=== PATIENT | female | born 1940 | race Caucasian/White ===

== ENCOUNTER 2022-10-28 20:12 | Inpatient (IN) | payer MEDICARE, BC ==
--- NOTE | 2022-10-28 20:15 | ERPHSYRPT ---
- History of Present Illness Time Seen by Provider: 10/28/22 20:15 Historian: patient, family Exam Limitations: no limitations Physician History: This is an overweight 82-year-old white female patient who presents with at least a month of symptoms including vomiting and diarrhea, cough, shortness of air, headache and body aches. Patient states she has not seen her primary care provider but the office has called in medication for her to help treat diarrhea. This did not help her symptoms. Patient denies chest pain at this time. Patient does use oxygen occasionally for COPD. In the last day or 2 she has had increased the use of her oxygen. Patient has a history of hyperlipidemia, hypothyroidism, hypertension, diabetes, gastroesophageal reflux disease. In a ddition she has coronary disease and has not had a CABG in the past. Timing/Duration: other (Symptoms for over a month) Activities at Onset: none Quality: other Abdominal Pain Onset Location: generalized abdomen (Mild) Pain Radiation: no radiation Severity of Pain-Max: mild Severity of Pain-Current: mild Modifying Factors: Improves With: coughing, vomiting Associated Symptoms: diarrhea, loss of appetite, nausea, shortness of breath (Mild), vomiting, weakness, No chest pain Previous symptoms: same symptoms as today, no recent treatment Allergies/Adverse Reactions: No Known Drug Allergies Allergy (Verified 10/28/22 20:25) Home Medications: Aspirin [Blanca Chewable] 81 mg PO DAILY 07/07/15 [History] Cyanocobalamin 1000 Mcg/ml [Cyanocobalamin B-12 1000 MCG/ML] 1,000 mcg IJ UD 07/07/15 [History] Levothyroxine Sodium [Synthroid] 125 mcg PO DAILY 07/07/15 [History] Losartan Potassium 50 mg [Cozaar 50 MG] 50 mg PO DAILY 07/07/15 [History] Simvastatin 40 mg [Zocor 40 mg] 40 mg PO HS 07/07/15 [History] Amlodipine Besylate 5 mg [Norvasc 5 mg] 5 mg PO DAILY 10/28/22 [History] Cholecalciferol (Vitamin D3) [Vitamin D] 1.25 mg PO WEEKLY 10/28/22 [History] Cholestyramine [Cholestyramine Resin] 25 mg PO DAILY 10/28/22 [History] Fish Oil/Dha/Epa [Fish Oil 1,200 mg Fish Oil] 1,200 mg PO DAILY 10/28/22 [History] Meclizine HCl 12.5 mg PO DAILY 10/28/22 [History] Ondansetron [Ondansetron Odt ] 1 tab PO Q8H PRN PRN 10/28/22 [History] Potassium Chloride [Klor-Con 10] 10 meq PO DAILY 10/28/22 [History] Sitagliptin Phos/Metformin HCl [Janumet Xr 100-1,000 mg Tablet] 50 - 1,000 mg PO DAILY 10/28/22 [History] Travel Risk - International Travel Have you traveled outside of the country in past 3 weeks: No - Coronavirus Screening Are you exhibiting any of the following symptoms?: Yes Symptoms: Cough: New Onset, Shortness of Breath, Vomiting/Diarrhea, Headaches/Body Aches/Fatigue Close contact with a COVID-19 positive Pt in past 14-21 Days: No - Review of Systems Constitutional: Weakness Eyes: No Symptoms Ears, Nose, & Throat: No Symptoms Respiratory: No Symptoms Cardiac: No Symptoms Abdominal/Gastrointestinal: Abdominal Pain, Nausea, Vomiting, Diarrhea, Appetite Changes Genitourinary Symptoms: No Symptoms Musculoskeletal: Arthralgias, Myalgias Skin: No Symptoms Neurological: No Symptoms Psychological: No Symptoms Endocrine: No Symptoms Hematologic/Lymphatic: No Symptoms Immunological/Allergic: No Symptoms All Other Systems: Reviewed and Negative - Past Medical History Pertinent Past Medical History: Yes Neurological History: No Pertinent History ENT History: Cataracts Cardiac History: Coronary Artery Disease, High Cholesterol, Hypertension Respiratory History: No Pertinent History Endocrine Medical History: Diabetes Type II, Hypothyroidism Musculoskeletal History: Arthritis GI Medical History: GERD, Other History: No Pertinent History Psycho-Social History: No Pertinent History Female Reproductive Disorders: No Pertinent History Other Medical History: states has had diarrhea last few weeks - Past Surgical History Past Surgical History: Yes Neuro Surgical History: No Pertinent History Cardiac: CABG Respiratory: Chest Surgery Gastrointestinal: Appendectomy, Cholecystectomy Genitourinary: No Pertinent History Musculoskeletal: No Pertinent History Female Surgical History: Lumpectomy, Tubal Ligation Other Surgical History: T&A, lumpectomy right breast was benign, sinus surgery, lumpectomy at neck/shoulder area - Social History Smoking Status: Never smoker Exposure to second hand smoke: No Drug Use: none - Nursing Vital Signs Nursing Vital Signs: Initial Vital Signs Temperature 98.5 F 10/28/22 20:24 Pulse Rate 65 10/28/22 20:24 Respiratory Rate 17 10/28/22 20:24 Blood Pressure 139/64 10/28/22 20:24 O2 Sat by Pulse Oximetry 98 10/28/22 20:24 Pain Scale Pain Intensity 0 - Physical Exam General Appearance: no apparent distress, alert, anxiety Eye Exam: PERRL/EOMI, eyes nml inspection Ears, Nose, Throat Exam: dry mucous membranes Neck Exam: normal inspection, non-tender, supple, full range of motion Respiratory Exam: normal breath sounds, lungs clear, airway intact, No chest tenderness, No respiratory distress Cardiovascular Exam: regular rate/rhythm, normal heart sounds, normal peripheral pulses Gastrointestinal/Abdomen Exam: soft, normal bowel sounds, tenderness (Mild diffuse), No rebound Pelvic Exam: not done Rectal Exam: not done Back Exam: normal inspection, normal range of motion, No CVA tenderness, No vertebral tenderness Extremity Exam: normal inspection, normal range of motion, pelvis stable Neurologic Exam: alert, oriented x 3, cooperative, fbi profiler II-XII nml as tested, normal mood/affect, nml cerebellar function, nml station & gait, sensation nml Skin Exam: normal color, warm, dry Lymphatic Exam: No adenopathy SpO2 Interpretation: normal O2 Delivery: Room Air - Course Nursing assessment & vital signs reviewed: Yes Ordered Tests: Active Orders 24 hr Category Date Time Status IV Insertion STAT Care 10/28/22 20:39 Active ABDOMEN AND PELVIS W/0 CONTRAS [CT] Stat Exams 10/28/22 20:39 Completed CHEST 1 VIEW (PORTABLE) Stat Exams 10/28/22 21:13 Taken AMYLASE Stat Lab 10/28/22 20:52 Completed BLOOD CULTURE Stat Lab 10/28/22 21:13 Ordered CBC W DIFF Stat Lab 10/28/22 20:52 Completed CMP Stat Lab 10/28/22 20:52 Completed LIPASE Stat Lab 10/28/22 20:52 Completed Lactic Acid Stat Lab 10/28/22 20:50 Completed Lactic Acid Stat Lab 10/28/22 23:00 Received MONO SCREEN Stat Lab 10/28/22 20:52 Completed UA W/RFX UR CULTURE Stat Lab 10/28/22 21:14 Completed Transfer Order Routine Transfer 10/28/22 Ordered Medication Summary Generic Name Dose Route Start Last Admin Trade Name Rosie PRN Reason Stop Dose Admin Sodium Chloride 1,000 mls @ 100 mls/hr 10/28/22 20:45 10/28/22 20:52 Sodium Chloride 0.9% 1000 Ml IV 11/27/22 20:44 100 mls/hr .Q10H ANGEL Administration Sodium Chloride 1,000 mls @ 999 mls/hr 10/28/22 22:45 Sodium Chloride 0.9% 1000 Ml IV 10/28/22 23:45 .Q1H1M STA Lab/Rad Data: Laboratory Result Diagrams 10/28/22 20:52 10/28/22 20:52 Laboratory Results 10/28/22 10/28/22 10/28/22 Range/Units 21:14 21:13 20:52 WBC (4.0-10.5) x10^3/uL RBC (4.1-5.4) x10^6/uL Hgb (12.0-16.0) g/dL Hct (35-47) % MCV (78-100) fL MCH (26-32) pg MCHC (32-36) g/dL RDW (11.5-14.0) % Plt Count (150-450) x10^3/uL MPV (7.5-11.0) fL Gran % (36.0-66.0) % Immature Gran % (Auto) (0.00-0.4) % Nucleat RBC Rel Count (0.00-0.1) % Eos # (Auto) (0-0.5) x10^3/uL Immature Gran # (Auto) (0.00-0.03) x10^3u/L Absolute Lymphs (auto) (1.0-4.6) x10^3/uL Absolute Monos (auto) (0.0-1.3) x10^3/uL Absolute Nucleated RBC (0.00-0.01) x10^3u/L Lymphocytes % (24.0-44.0) % Monocytes % (0.0-12.0) % Eosinophils % (0.00-5.0) % Basophils % (0.0-0.4) % Absolute Granulocytes (1.4-6.9) x10^3/uL Basophils # (0-0.4) x10^3/uL Sodium (137-145) mmol/L Potassium (3.5-5.1) mmol/L Chloride (98-107) mmol/L Carbon Dioxide (22-30) mmol/L Anion Gap (5-15) MEQ/L BUN (7-17) mg/dL Creatinine (0.52-1.04) mg/dL Estimated GFR ML/MIN Glucose (74-106) mg/dL Lactic Acid (0.4-2.0) Calcium (8.4-10.2) mg/dL Total Bilirubin (0.2-1.3) mg/dL AST (14-36) U/L ALT (0-35) U/L Alkaline Phosphatase (38-126) U/L Serum Total Protein (6.3-8.2) g/dL Albumin (3.5-5.0) g/dL Amylase (30-110) U/L Lipase (23-300) U/L Urine Color Yellow (Yellow) Urine Appearance Clear (Clear) Urine pH 5.5 (4.6-8.0) Ur Specific [place] 1.010 (1.005-1.030) Urine Protein Negative (Negative) Urine Glucose (UA) Negative (Negative) mg/dL Urine Ketones Negative (Negative) Urine Blood Negative (Negative) Urine Nitrite Negative (Negative) Urine Bilirubin Negative (Negative) Urine Urobilinogen 0.2 (0.2) mg/dL Ur Leukocyte Esterase Trace A (Negative) U Hyaline Cast (Auto) 3-5 A (0-2) /LPF Urine Microscopic RBC 0-2 (0-5) /HPF Urine Microscopic WBC 3-5 (0-5) /HPF Ur Epithelial Cells Rare (None Seen) /HPF Urine Bacteria None Seen (None Seen) /HPF Urine Culture Reflexed NO (NO) Monoscreen NEGATIVE (NEGATIVE) Influenza Type A Ag NEGATIVE (NEGATIVE) Influenza Type B Ag NEGATIVE (NEGATIVE) RSV (PCR) NEGATIVE (NEGATIVE) SARS-CoV-2 (PCR) NEGATIVE (NEGATIVE) 10/28/22 10/28/22 10/28/22 Range/Units 20:52 20:52 20:50 WBC 4.5 (4.0-10.5) x10^3/uL RBC 3.71 L (4.1-5.4) x10^6/uL Hgb 11.4 L (12.0-16.0) g/dL Hct 33.1 L (35-47) % MCV 89.2 (78-100) fL MCH 30.7 (26-32) pg MCHC 34.4 (32-36) g/dL RDW 14.6 H (11.5-14.0) % Plt Count 198 (150-450) x10^3/uL MPV 10.4 (7.5-11.0) fL Gran % 43.8 (36.0-66.0) % Immature Gran % (Auto) 0.4 (0.00-0.4) % Nucleat RBC Rel Count 0.0 (0.00-0.1) % Eos # (Auto) 0.02 (0-0.5) x10^3/uL Immature Gran # (Auto) 0.02 (0.00-0.03) x10^3u/L Absolute Lymphs (auto) 2.08 (1.0-4.6) x10^3/uL Absolute Monos (auto) 0.40 (0.0-1.3) x10^3/uL Absolute Nucleated RBC 0.00 (0.00-0.01) x10^3u/L Lymphocytes % 46.3 H (24.0-44.0) % Monocytes % 8.9 (0.0-12.0) % Eosinophils % 0.4 (0.00-5.0) % Basophils % 0.2 (0.0-0.4) % Absolute Granulocytes 1.96 (1.4-6.9) x10^3/uL Basophils # 0.01 (0-0.4) x10^3/uL Sodium 126 L (137-145) mmol/L Potassium 4.5 (3.5-5.1) mmol/L Chloride 99 (98-107) mmol/L Carbon Dioxide 19 L (22-30) mmol/L Anion Gap 12.9 (5-15) MEQ/L BUN 12 (7-17) mg/dL Creatinine 1.51 H (0.52-1.04) mg/dL Estimated GFR 35.2 ML/MIN Glucose 83 (74-106) mg/dL Lactic Acid 2.2 H (0.4-2.0) Calcium 7.3 L (8.4-10.2) mg/dL Total Bilirubin 0.40 (0.2-1.3) mg/dL AST 55 H (14-36) U/L ALT 26 (0-35) U/L Alkaline Phosphatase 51 (38-126) U/L Serum Total Protein 5.4 L (6.3-8.2) g/dL Albumin 2.4 L (3.5-5.0) g/dL Amylase 52 (30-110) U/L Lipase 106 (23-300) U/L Urine Color (Yellow) Urine Appearance (Clear) Urine pH (4.6-8.0) Ur Specific [place] (1.005-1.030) Urine Protein (Negative) Urine Glucose (UA) (Negative) mg/dL Urine Ketones (Negative) Urine Blood (Negative) Urine Nitrite (Negative) Urine Bilirubin (Negative) Urine Urobilinogen (0.2) mg/dL Ur Leukocyte Esterase (Negative) U Hyaline Cast (Auto) (0-2) /LPF Urine Microscopic RBC (0-5) /HPF Urine Microscopic WBC (0-5) /HPF Ur Epithelial Cells (None Seen) /HPF Urine Bacteria (None Seen) /HPF Urine Culture Reflexed (NO) Monoscreen (NEGATIVE) Influenza Type A Ag (NEGATIVE) Influenza Type B Ag (NEGATIVE) RSV (PCR) (NEGATIVE) SARS-CoV-2 (PCR) (NEGATIVE) - Progress Progress: improved Progress Note: 10/28/22 22:53 Chest x-ray was interpreted by me. I do not appreciate any acute cardiopulmonary process. Next CT scan of the abdomen pelvis shows colitis at the cecum and in the area of a sending colon with pericolic fat stranding present. There is a small fat- containing supraumbilical hernia. There is thickened urinary bladder wall concerning for cystitis. The pancreas shows a contour bulge at the junction of the head and body with a small underlying hypodensity measuring 7 mm x 7 mm. This patient's medical issue is 1 of high complexity. The level of complexity and the work-up performed based on the review of the patient's past medical history, review of the patient's medication list, review of the patient's drug allergy list, history of present illness and the physical findings on examination. This patient underwent a chest x-ray, CT scan of the abdomen pelvis, intravenous line placement with intravenous fluid infusion, CBC, CMP, amylase, lipase, viral/flu studies, urinalysis. I reviewed the results of the above-stated work-up. It appears the patient has evidence of colitis at the cecum and ascending colon. There also is a question of cystitis. I reviewed the above history, physical findings, work-up and the results with Dr. Ermias Mazariegos, the hospitalist on-call. The patient is elderly and lives with her elderly . We agreed that the patient can be placed in observation and provided with further intravenous fluids, intravenous antibiotics and antiemet ics. Dr. Ermias Mazariegos will follow-up with the pancreas findings. 10/28/22 22:58 Dr. Ermias Mazariegos accepted the patient at approximately 22:50 PM on 10/28/2022 Discussed with .: Mason Counseled pt/family regarding: lab results, diagnosis, rad results Medical Desision Making - Independent Historian Additional History obtained from: Family (Grandchild) - Discussion of managment Care discussed with:: on-call "doc" Reviewed:: Test results, Need for additional workup Agreed on:: Treatment plan, decision to admit Will see patient: in hospital - Diagnostic Testing Diagnostic test were ordered, analyzed, and reviewed by me: Yes Radiological Interpretation: Interpreted by me, Reviewed by me, Teleradiologist Report - Risk of complications The pt has a high risk of morbidity or mortality based on: Decision regarding hospitilization or escalation of hosp level of care - Departure Departure Disposition: Observation Clinical Impression: Colitis, Umbilical hernia, Pancreatic lesion, Hyponatremia Condition: Stable Critical Care Time: No Referrals: REHANA URBANO MD [Primary Care Provider] - Follow up/PCP as directed
[2022-10-28] MEDS ORDERED: Sodium Chloride 0.9% 1000 ML 1,000 ML IV SCH (20:45)
[2022-10-28 20:55] LABS: Absolute Neutrophil Ct (ANC) 1.96 x10^3/uL (1.4-6.9); BASOPHIL % 0.2 % (0.0-0.4); Basophil (Absolute #) 0.01 x10^3/uL (0-0.4); Eosinophil % 0.4 % (0.00-5.0); Eosinophil (Absolute #) 0.02 x10^3/uL (0-0.5); Hematocrit 33.1 % (35-47); Hemoglobin 11.4 g/dL (12.0-16.0); IMMATURE GRAN # 0.02 x10^3u/L (0.00-0.03); IMMATURE GRAN % 0.4 % (0.00-0.4); Lymphocyte (Absolute #) 2.08 x10^3/uL (1.0-4.6); Lymphocytes % 46.3 % (24.0-44.0); Mean Cell Volume 89.2 fL (78-100); Mean Corpuscular Hemoglobin 30.7 pg (26-32); Mean Corpuscular Hgb Concent. 34.4 g/dL (32-36); Mean Platelet Volume 10.4 fL (7.5-11.0); Monocytes % 8.9 % (0.0-12.0); Neutrophil % 43.8 % (36.0-66.0); Platelet Count 198 x10^3/uL (150-450); Red Blood Count 3.71 x10^6/uL (4.1-5.4); Red Cell Distribution Width 14.6 % (11.5-14.0); White Blood Count 4.5 x10^3/uL (4.0-10.5)
[2022-10-28 21:09] LABS: ALBUMIN 2.4 g/dL (3.5-5.0); ANION GAP 12.9 MEQ/L (5-15); BILIRUBIN,TOTAL 0.4 mg/dL (0.2-1.3); Calcium 7.3 mg/dL (8.4-10.2); Creatinine 1 1.51 mg/dL (0.52-1.04); EST GLOMERULAR FILTRATION RATE 35.2 ML/MIN; Potassium 4.5 mmol/L (3.5-5.1); Total Protein 5.4 g/dL (6.3-8.2)
[2022-10-28 21:27] LABS: Appearance Clear (Clear); Bacteria None Seen /HPF (None Seen); Bilirubin Negative (Negative); Blood Negative (Negative); Epithelial Cells Rare /HPF (None Seen); Glucose, Urine Negative (Negative); Ketones Negative (Negative); Leukocyte Esterase Trace (Negative); Nitrite Negative (Negative); Ph 5.5 (4.6-8.0); Protein,Urine Dip Negative (Negative); RBC 0-2 /HPF (0-5); Urobilinogen 0.2 mg/dL (0.2)
[2022-10-28 21:30] LABS: ADD URINE CULTURE? NO (NO)
[2022-10-28 21:55] LABS: INFLUENZA A NEGATIVE (NEGATIVE); INFLUENZA B NEGATIVE (NEGATIVE); RESPIRATORY SYNCTIAL VIRUS NEGATIVE (NEGATIVE); SARS-CoV-2 Xpert Express NEGATIVE (NEGATIVE)
--- NOTE | 2022-10-28 22:28 | XRAY ---
CLINICAL HISTORY:Vomiting and diarrhea; COMPARISON:None; TECHNIQUES:CT of the abdomen and pelvis was performed with axial images as well as sagittal and coronal reconstruction images without intravenous contrast. DLP: 590.02 mGy*cm. CTDI: 12.63 mGy; FINDINGS: The liver appears normal, no intrahepatic or extrahepatic bile duct dilation. David's hepatic lobe is noted. Gallbladder is surgically absent. Pancreas shows a contour bulge at the junction of head and body with a small underlying hypodensity measuring approximately 7 x 7mm. No pancreatic duct dilatation. Unremarkable appearing spleen. The adrenal glands are normal. Left simple renal cysts are noted, the larger one measures 4.6 x 4.2 cm. Right kidney is normal. No urinary tract calculus or hydronephrosis is seen on either side. The ureters are normal with no stones. Moderate atherosclerotic changes in the abdominal aorta without specific evidence of aneurysm or dissection. IVC is normal. The mild herniation of esophagus into the posterior mediastinum noted suggestive of small hiatus hernia. The stomach appears unremarkable. Mild edematous wall thickening of cecum and ascending colon is noted with mild pericolic fat stranding, suggestive of colitis. Colonic diverticulosis is seen involving the distal colon. No free air and no ascites. No free intraperitoneal air is seen. Minimally filled urinary bladder is noted with diffuse wall thickening. Anteverted uterus is unremarkable. No adnexal or pelvic mass is seen. A small supraumbilical fat containing hernia is noted with the neck measuring 2.5 cm. Moderate degenerative changes seen in the visualized spine. IMPRESSION: Edematous wall thickening of cecum and ascending colon is noted with mild pericolic fat stranding, suggestive of colitis. Colonic diverticulosis involving the distal colon. No acute diverticulitis. Minimally filled urinary bladder with diffuse wall thickening, concerning for cystitis. Urine R/E is advised. A small fat-containing supraumbilical hernia. Small hiatal hernia. Left simple renal cysts. Pancreas shows a contour bulge at the junction of the head and body with a small underlying hypodensity measuring (7 x 7 mm). Additional imaging can be done to further characterize it. Electronically Signed by: Krzysztof Chavez MD. ( 10/28/2022 21:22:29 [employer] ANALYST)
[2022-10-28] MEDS ORDERED: Sodium Chloride 0.9% 1000 ML 1,000 ML IV STA (22:45)
[2022-10-28] MEDS ORDERED: Levofloxacin 500MG/100ML D5W 500 MG/100 ML BAG IV STA (23:03)
[2022-10-28] MEDS ORDERED: Levofloxacin 500MG/100ML D5W 500 MG/100 ML BAG IV ONE (23:06)
[2022-10-28] MEDS ORDERED: Sodium Chloride 0.9% 1000 ML 1,000 ML ONE (23:39)
[2022-10-29] MEDS ORDERED: Zofran 4 MG/2 ML VIAL IV PRN (00:07)
[2022-10-29] MEDS: TYLENOL 325 MG PO PRN ×2 (01:37→01:42)
[2022-10-29] MEDS: Tessalon Perles 100 MG PO PRN (01:37)
[2022-10-29] MEDS: FLAGYL 500 MG IVPB 500 MG/100 ML BAG IV SCH ×5 (01:38→23:47)
[2022-10-29] MEDS: Sodium Chloride 0.9% 1000 ML 1,000 ML IV SCH ×2 (02:21→12:59)
[2022-10-29 06:04] LABS: Absolute Neutrophil Ct (ANC) 2.01 x10^3/uL (1.4-6.9); BASOPHIL % 0.3 % (0.0-0.4); Basophil (Absolute #) 0.01 x10^3/uL (0-0.4); Eosinophil % 0.3 % (0.00-5.0); Eosinophil (Absolute #) 0.01 x10^3/uL (0-0.5); Hematocrit 28.8 % (35-47); Hemoglobin 9.9 g/dL (12.0-16.0); IMMATURE GRAN # 0.02 x10^3u/L (0.00-0.03); IMMATURE GRAN % 0.5 % (0.00-0.4); Lymphocyte (Absolute #) 1.29 x10^3/uL (1.0-4.6); Lymphocytes % 35.3 % (24.0-44.0); Mean Cell Volume 88.9 fL (78-100); Mean Corpuscular Hemoglobin 30.6 pg (26-32); Mean Corpuscular Hgb Concent. 34.4 g/dL (32-36); Mean Platelet Volume 10.6 fL (7.5-11.0); Monocyte (Absolute #) 0.31 x10^3/uL (0.0-1.3); Monocytes % 8.5 % (0.0-12.0); Neutrophil % 55.1 % (36.0-66.0); Platelet Count 158 x10^3/uL (150-450); Red Blood Count 3.24 x10^6/uL (4.1-5.4); Red Cell Distribution Width 14.7 % (11.5-14.0); White Blood Count 3.7 x10^3/uL (4.0-10.5)
[2022-10-29 06:20] LABS: ALBUMIN 1.8 g/dL (3.5-5.0); ANION GAP 10.1 MEQ/L (5-15); BILIRUBIN,TOTAL 0.3 mg/dL (0.2-1.3); Calcium 6.7 mg/dL (8.4-10.2); Creatinine 1 1.3 mg/dL (0.52-1.04); EST GLOMERULAR FILTRATION RATE 41.9 ML/MIN; Potassium 4.2 mmol/L (3.5-5.1); Total Protein 4.1 g/dL (6.3-8.2)
--- NOTE | 2022-10-29 07:52 | XRAY ---
Indication: Cough and weakness. Comparison: July 27, 2022 Portable chest again hyperinflated with minimal lingula subsegmental atelectasis/scarring. Heart not enlarged again with CABG. Bony thorax intact again with osteopenia mild degenerative changes. No new/acute findings.
[2022-10-29] MEDS ORDERED: VITAMIN D2 PO SCH (10:00)
[2022-10-29] MEDS ORDERED: Levofloxacin 500MG/100ML D5W 500 MG/100 ML BAG IV SCH (10:00)
[2022-10-29] MEDS ORDERED: ZOFRAN ODT 4 MG PO PRN (10:01)
[2022-10-29] MEDS ORDERED: NON-FORMULARY ITEM (Cholecalciferol (Vitamin D3)** [Vitamin D***] 400 UNIT Tablet) PO SCH (10:15)
[2022-10-29] MEDS: FISH OIL 1,000 MG CAPSULE PO SCH (11:48)
[2022-10-29] MEDS: Cozaar 50 MG PO SCH (11:48)
[2022-10-29] MEDS: ECOTRIN 81 MG PO SCH (11:48)
[2022-10-29] MEDS: Klor Con PO SCH (11:48)
[2022-10-29] MEDS: NORVASC 5 MG PO SCH (11:48)
[2022-10-29] MEDS: SYNTHROID 125 MCG PO SCH (11:48)
[2022-10-29] MEDS ORDERED: NON-FORMULARY ITEM (Lipase/Protease/Amylase [Creon Dr 36,000 Unit Capsule] 1 EACH Capsule. PO SCH (12:00)
--- NOTE | 2022-10-29 14:25 | PCM.HP ---
History of Present Illness - Chief Complaint Chief Complaint: Colitis History of Present Illness: Pt seen by me at approx 08:15 am. is a 82 year old female pt of Dr. Gary with a PMHx of COPD, HLD, hypothyroidism, HTN, DII, GED, CAD, and chronic anemia who came to ER with cough/SOB, COOPER, body aches, and vomiting/diarrhea, and was admitted with colitis, pancreatic lesion, umbilical hernia, and hyponatremia. CT of the abdoemn showed edema and wall thickening of cecum and colon, with bladder wall thickening and a density in the pancreas. Na was 126. eGFR 35.2. She was admitted on levaquin and flagyl IV and on CLD. Apparently she has been having problems with intermittent diarrhea and vomiting for over 1 mo. She has lost 20-25lb since Jan 2022. Dr. Gary has been trying to diagnose her and thinks there is an issue with the pancreas - her stool pancreatic elastase was recently 73 (and normal is > 200). She was given zenpap, but it caused nausea and was too expensive. Currently she is on cholestyramine, which keeps her from having diarrhea for about 3 days, then the diarrhea recurs. She last took it on (2 days ago). If she's having diarrhea, she will have numerous (but < 10) soft to watery stools a day. Recently she has not been eating or drinking well - averages about 2 coca-cola's a day. She thinks she is feeling a little better this morning. Tolerating CLD. Apparently she was prescribed Creon, 1 po TID, but she tells staff she is supposed to be taking 2 po TID. - Review of Systems Respiratory: Cough (x 2 days) Cardiac: Edema (LE, intermittent. noncompliant with compression stockings) Psychological: Depression, No Anxiety Endocrine: Cold Intolerance All Other Systems: Reviewed and Negative Medications & Allergies Home Medications: Home Medication List Aspirin [Blanca Chewable] 81 mg PO DAILY 07/07/15 [History Confirmed 10/28/22] Cyanocobalamin 1000 Mcg/ml [Cyanocobalamin B-12 1000 MCG/ML] 1,000 mcg IJ UD 07/07/15 [History Confirmed 10/28/22] Levothyroxine Sodium [Synthroid] 125 mcg PO DAILY 07/07/15 [History Confirmed 10/28/22] Losartan Potassium 50 mg [Cozaar 50 MG] 50 mg PO DAILY 07/07/15 [History Confirmed 10/28/22] Simvastatin 40 mg [Zocor 40 mg] 40 mg PO HS 07/07/15 [History Confirmed 10/28/22] Amlodipine Besylate 5 mg [Norvasc 5 mg] 5 mg PO DAILY 10/28/22 [History Confirmed 10/28/22] Cholecalciferol (Vitamin D3) [Vitamin D] 1.25 mg PO WEEKLY 10/28/22 [History Confirmed 10/28/22] Cholestyramine [Cholestyramine Resin] 25 mg PO DAILY 10/28/22 [History Confirmed 10/28/22] Fish Oil/Dha/Epa [Fish Oil 1,200 mg Fish Oil] 1,200 mg PO DAILY 10/28/22 [History Confirmed 10/28/22] Ondansetron [Ondansetron Odt ] 1 tab PO Q8H PRN PRN 10/28/22 [History Confirmed 10/28/22] Potassium Chloride [Klor-Con 10] 10 meq PO DAILY 10/28/22 [History Confirmed 10/28/22] Sitagliptin Phos/Metformin HCl [Janumet Xr 100-1,000 mg Tablet] 50 - 1,000 mg PO DAILY 10/28/22 [History Confirmed 10/28/22] Lipase/Protease/Amylase [Sola Dr 36,000 Unit Capsule] 36,000 unit PO TIDWM 10/29/22 [History Confirmed 10/29/22] Allergies/Adverse Reactions: Allergies Allergy/AdvReac Type Severity Reaction Status Date / Time No Known Drug Allergies Allergy Verified 10/28/22 20:25 - Past Medical History Past Medical History: Yes Neurological History: No Pertinent History ENT History: Cataracts Cardiac History: Coronary Artery Disease, High Cholesterol, Hypertension Respiratory History: No Pertinent History Endocrine Medical History: Diabetes Type II, Hypothyroidism Musculoskelatal History: Arthritis GI Medical History: GERD, Other History: No Pertinent History Pyscho-Social History: No Pertinent History Reproductive Disorders: No Pertinent History Comment: states has had diarrhea last few weeks - Past Surgical History Past Surgical History: Yes Neuro Surgical History: No Pertinent History Cardiac History: CABG Respiratory Surgery: Chest Surgery GI Surgical History: Appendectomy, Cholecystectomy Genitourinary Surgical Hx: No Pertinent History Musculskeletal Surgical Hx: No Pertinent History Female Surgical History: Lumpectomy, Tubal Ligation Other Surgical History: T&A, lumpectomy right breast was benign, sinus surgery, lumpectomy at neck/shoulder area - Social History Smoking Status: Never smoker Exposure to second hand smoke: No Alcohol: None Drug Use: none - Physical Exam Vital Signs: Vital Signs - 24 hr Temp Pulse Resp BP BP Pulse Ox 10/29/22 11:49 97.6 F 57 L 16 127/63 97 10/29/22 06:30 97.6 F 59 L 16 123/64 97 10/29/22 03:57 98.1 F 62 16 107/57 96 10/29/22 00:36 97.7 F 73 18 149/70 100 10/28/22 23:13 57 L 20 135/64 100 10/28/22 21:06 67 18 135/62 97 10/28/22 20:24 98.5 F 65 17 139/64 98 General Appearance: no apparent distress, alert, other (lying in bed under several blankets and with a blanket over the top of her head.) Neurologic Exam: alert, cooperative, normal mood/affect Eye Exam: eyes nml inspection Ears, Nose, Throat Exam: pharynx normal, moist mucous membranes Neck Exam: normal inspection, non-tender, No lymphadenopathy, No subcutaneous emphysema, No midline tenderness Respiratory Exam: normal breath sounds, lungs clear, No respiratory distress, No crackles/rales, No rhonchi Cardiovascular Exam: regular rate/rhythm, normal heart sounds, murmur (I/ sys murmur) Gastrointestinal/Abdomen Exam: soft, normal bowel sounds, tenderness (mild tenderness to deep palpation, epigastrum/RUQ), No distention, No mass, No guarding, No rebound Back Exam: normal inspection, No rash Extremity Exam: normal inspection, No pedal edema, No swelling Results - Labs Lab/Micro Results: Lab Results-Last 24 Hours 10/28/22 10/28/22 10/28/22 Range/Units 20:50 20:52 20:52 WBC 4.5 (4.0-10.5) x10^3/uL RBC 3.71 L (4.1-5.4) x10^6/uL Hgb 11.4 L (12.0-16.0) g/dL Hct 33.1 L (35-47) % MCV 89.2 (78-100) fL MCH 30.7 (26-32) pg MCHC 34.4 (32-36) g/dL RDW 14.6 H (11.5-14.0) % Plt Count 198 (150-450) x10^3/uL MPV 10.4 (7.5-11.0) fL Gran % 43.8 (36.0-66.0) % Immature Gran % (Auto) 0.4 (0.00-0.4) % Nucleat RBC Rel Count 0.0 (0.00-0.1) % Eos # (Auto) 0.02 (0-0.5) x10^3/uL Immature Gran # (Auto) 0.02 (0.00-0.03) x10^3u/L Absolute Lymphs (auto) 2.08 (1.0-4.6) x10^3/uL Absolute Monos (auto) 0.40 (0.0-1.3) x10^3/uL Absolute Nucleated RBC 0.00 (0.00-0.01) x10^3u/L Lymphocytes % 46.3 H (24.0-44.0) % Monocytes % 8.9 (0.0-12.0) % Eosinophils % 0.4 (0.00-5.0) % Basophils % 0.2 (0.0-0.4) % Absolute Granulocytes 1.96 (1.4-6.9) x10^3/uL Basophils # 0.01 (0-0.4) x10^3/uL Sodium 126 L (137-145) mmol/L Potassium 4.5 (3.5-5.1) mmol/L Chloride 99 (98-107) mmol/L Carbon Dioxide 19 L (22-30) mmol/L Anion Gap 12.9 (5-15) MEQ/L BUN 12 (7-17) mg/dL Creatinine 1.51 H (0.52-1.04) mg/dL Estimated GFR 35.2 ML/MIN Glucose 83 (74-106) mg/dL POC Glucometer (74 to 106) mg/dL Lactic Acid 2.2 H (0.4-2.0) Calcium 7.3 L (8.4-10.2) mg/dL Total Bilirubin 0.40 (0.2-1.3) mg/dL AST 55 H (14-36) U/L ALT 26 (0-35) U/L Alkaline Phosphatase 51 (38-126) U/L NT-Pro-B Natriuret Pep (<300) pg/mL Serum Total Protein 5.4 L (6.3-8.2) g/dL Albumin 2.4 L (3.5-5.0) g/dL Amylase 52 (30-110) U/L Lipase 106 (23-300) U/L Free T4 (0.78-2.19) ng/dL TSH 3rd Generation (0.47-4.68) mIU/L Urine Color (Yellow) Urine Appearance (Clear) Urine pH (4.6-8.0) Ur Specific Hackett (1.005-1.030) Urine Protein (Negative) Urine Glucose (UA) (Negative) mg/dL Urine Ketones (Negative) Urine Blood (Negative) Urine Nitrite (Negative) Urine Bilirubin (Negative) Urine Urobilinogen (0.2) mg/dL Ur Leukocyte Esterase (Negative) U Hyaline Cast (Auto) (0-2) /LPF Urine Microscopic RBC (0-5) /HPF Urine Microscopic WBC (0-5) /HPF Ur Epithelial Cells (None Seen) /HPF Urine Bacteria (None Seen) /HPF Urine Culture Reflexed (NO) Monoscreen (NEGATIVE) Influenza Type A Ag (NEGATIVE) Influenza Type B Ag (NEGATIVE) RSV (PCR) (NEGATIVE) SARS-CoV-2 (PCR) (NEGATIVE) 10/28/22 10/28/22 10/28/22 Range/Units 20:52 21:13 21:14 WBC (4.0-10.5) x10^3/uL RBC (4.1-5.4) x10^6/uL Hgb (12.0-16.0) g/dL Hct (35-47) % MCV (78-100) fL MCH (26-32) pg MCHC (32-36) g/dL RDW (11.5-14.0) % Plt Count (150-450) x10^3/uL MPV (7.5-11.0) fL Gran % (36.0-66.0) % Immature Gran % (Auto) (0.00-0.4) % Nucleat RBC Rel Count (0.00-0.1) % Eos # (Auto) (0-0.5) x10^3/uL Immature Gran # (Auto) (0.00-0.03) x10^3u/L Absolute Lymphs (auto) (1.0-4.6) x10^3/uL Absolute Monos (auto) (0.0-1.3) x10^3/uL Absolute Nucleated RBC (0.00-0.01) x10^3u/L Lymphocytes % (24.0-44.0) % Monocytes % (0.0-12.0) % Eosinophils % (0.00-5.0) % Basophils % (0.0-0.4) % Absolute Granulocytes (1.4-6.9) x10^3/uL Basophils # (0-0.4) x10^3/uL Sodium (137-145) mmol/L Potassium (3.5-5.1) mmol/L Chloride (98-107) mmol/L Carbon Dioxide (22-30) mmol/L Anion Gap (5-15) MEQ/L BUN (7-17) mg/dL Creatinine (0.52-1.04) mg/dL Estimated GFR ML/MIN Glucose (74-106) mg/dL POC Glucometer (74 to 106) mg/dL Lactic Acid (0.4-2.0) Calcium (8.4-10.2) mg/dL Total Bilirubin (0.2-1.3) mg/dL AST (14-36) U/L ALT (0-35) U/L Alkaline Phosphatase (38-126) U/L NT-Pro-B Natriuret Pep (<300) pg/mL Serum Total Protein (6.3-8.2) g/dL Albumin (3.5-5.0) g/dL Amylase (30-110) U/L Lipase (23-300) U/L Free T4 (0.78-2.19) ng/dL TSH 3rd Generation (0.47-4.68) mIU/L Urine Color Yellow (Yellow) Urine Appearance Clear (Clear) Urine pH 5.5 (4.6-8.0) Ur Specific Hackett 1.010 (1.005-1.030) Urine Protein Negative (Negative) Urine Glucose (UA) Negative (Negative) mg/dL Urine Ketones Negative (Negative) Urine Blood Negative (Negative) Urine Nitrite Negative (Negative) Urine Bilirubin Negative (Negative) Urine Urobilinogen 0.2 (0.2) mg/dL Ur Leukocyte Esterase Trace A (Negative) U Hyaline Cast (Auto) 3-5 A (0-2) /LPF Urine Microscopic RBC 0-2 (0-5) /HPF Urine Microscopic WBC 3-5 (0-5) /HPF Ur Epithelial Cells Rare (None Seen) /HPF Urine Bacteria None Seen (None Seen) /HPF Urine Culture Reflexed NO (NO) Monoscreen NEGATIVE (NEGATIVE) Influenza Type A Ag NEGATIVE (NEGATIVE) Influenza Type B Ag NEGATIVE (NEGATIVE) RSV (PCR) NEGATIVE (NEGATIVE) SARS-CoV-2 (PCR) NEGATIVE (NEGATIVE) 10/28/22 10/29/22 10/29/22 Range/Units 23:00 05:16 05:16 WBC 3.7 L (4.0-10.5) x10^3/uL RBC 3.24 L (4.1-5.4) x10^6/uL Hgb 9.9 L (12.0-16.0) g/dL Hct 28.8 L (35-47) % MCV 88.9 (78-100) fL MCH 30.6 (26-32) pg MCHC 34.4 (32-36) g/dL RDW 14.7 H (11.5-14.0) % Plt Count 158 (150-450) x10^3/uL MPV 10.6 (7.5-11.0) fL Gran % 55.1 (36.0-66.0) % Immature Gran % (Auto) 0.5 H (0.00-0.4) % Nucleat RBC Rel Count 0.0 (0.00-0.1) % Eos # (Auto) 0.01 (0-0.5) x10^3/uL Immature Gran # (Auto) 0.02 (0.00-0.03) x10^3u/L Absolute Lymphs (auto) 1.29 (1.0-4.6) x10^3/uL Absolute Monos (auto) 0.31 (0.0-1.3) x10^3/uL Absolute Nucleated RBC 0.00 (0.00-0.01) x10^3u/L Lymphocytes % 35.3 (24.0-44.0) % Monocytes % 8.5 (0.0-12.0) % Eosinophils % 0.3 (0.00-5.0) % Basophils % 0.3 (0.0-0.4) % Absolute Granulocytes 2.01 (1.4-6.9) x10^3/uL Basophils # 0.01 (0-0.4) x10^3/uL Sodium 127 L (137-145) mmol/L Potassium 4.2 (3.5-5.1) mmol/L Chloride 103 (98-107) mmol/L Carbon Dioxide 18 L (22-30) mmol/L Anion Gap 10.1 (5-15) MEQ/L BUN 10 (7-17) mg/dL Creatinine 1.30 H (0.52-1.04) mg/dL Estimated GFR 41.9 ML/MIN Glucose 69 L (74-106) mg/dL POC Glucometer (74 to 106) mg/dL Lactic Acid 1.2 (0.4-2.0) Calcium 6.7 L (8.4-10.2) mg/dL Total Bilirubin 0.30 (0.2-1.3) mg/dL AST 40 H (14-36) U/L ALT 20 (0-35) U/L Alkaline Phosphatase 46 (38-126) U/L NT-Pro-B Natriuret Pep 208 (<300) pg/mL Serum Total Protein 4.1 L (6.3-8.2) g/dL Albumin 1.8 L (3.5-5.0) g/dL Amylase (30-110) U/L Lipase (23-300) U/L Free T4 (0.78-2.19) ng/dL TSH 3rd Generation (0.47-4.68) mIU/L Urine Color (Yellow) Urine Appearance (Clear) Urine pH (4.6-8.0) Ur Specific Hackett (1.005-1.030) Urine Protein (Negative) Urine Glucose (UA) (Negative) mg/dL Urine Ketones (Negative) Urine Blood (Negative) Urine Nitrite (Negative) Urine Bilirubin (Negative) Urine Urobilinogen (0.2) mg/dL Ur Leukocyte Esterase (Negative) U Hyaline Cast (Auto) (0-2) /LPF Urine Microscopic RBC (0-5) /HPF Urine Microscopic WBC (0-5) /HPF Ur Epithelial Cells (None Seen) /HPF Urine Bacteria (None Seen) /HPF Urine Culture Reflexed (NO) Monoscreen (NEGATIVE) Influenza Type A Ag (NEGATIVE) Influenza Type B Ag (NEGATIVE) RSV (PCR) (NEGATIVE) SARS-CoV-2 (PCR) (NEGATIVE) 10/29/22 10/29/22 10/29/22 Range/Units 05:16 05:16 06:20 WBC (4.0-10.5) x10^3/uL RBC (4.1-5.4) x10^6/uL Hgb (12.0-16.0) g/dL Hct (35-47) % MCV (78-100) fL MCH (26-32) pg MCHC (32-36) g/dL RDW (11.5-14.0) % Plt Count (150-450) x10^3/uL MPV (7.5-11.0) fL Gran % (36.0-66.0) % Immature Gran % (Auto) (0.00-0.4) % Nucleat RBC Rel Count (0.00-0.1) % Eos # (Auto) (0-0.5) x10^3/uL Immature Gran # (Auto) (0.00-0.03) x10^3u/L Absolute Lymphs (auto) (1.0-4.6) x10^3/uL Absolute Monos (auto) (0.0-1.3) x10^3/uL Absolute Nucleated RBC (0.00-0.01) x10^3u/L Lymphocytes % (24.0-44.0) % Monocytes % (0.0-12.0) % Eosinophils % (0.00-5.0) % Basophils % (0.0-0.4) % Absolute Granulocytes (1.4-6.9) x10^3/uL Basophils # (0-0.4) x10^3/uL Sodium (137-145) mmol/L Potassium (3.5-5.1) mmol/L Chloride (98-107) mmol/L Carbon Dioxide (22-30) mmol/L Anion Gap (5-15) MEQ/L BUN (7-17) mg/dL Creatinine (0.52-1.04) mg/dL Estimated GFR ML/MIN Glucose (74-106) mg/dL POC Glucometer 75 (74 to 106) mg/dL Lactic Acid (0.4-2.0) Calcium (8.4-10.2) mg/dL Total Bilirubin (0.2-1.3) mg/dL AST (14-36) U/L ALT (0-35) U/L Alkaline Phosphatase (38-126) U/L NT-Pro-B Natriuret Pep (<300) pg/mL Serum Total Protein (6.3-8.2) g/dL Albumin (3.5-5.0) g/dL Amylase (30-110) U/L Lipase (23-300) U/L Free T4 0.34 L (0.78-2.19) ng/dL TSH 3rd Generation 30.800 H (0.47-4.68) mIU/L Urine Color (Yellow) Urine Appearance (Clear) Urine pH (4.6-8.0) Ur Specific Hackett (1.005-1.030) Urine Protein (Negative) Urine Glucose (UA) (Negative) mg/dL Urine Ketones (Negative) Urine Blood (Negative) Urine Nitrite (Negative) Urine Bilirubin (Negative) Urine Urobilinogen (0.2) mg/dL Ur Leukocyte Esterase (Negative) U Hyaline Cast (Auto) (0-2) /LPF Urine Microscopic RBC (0-5) /HPF Urine Microscopic WBC (0-5) /HPF Ur Epithelial Cells (None Seen) /HPF Urine Bacteria (None Seen) /HPF Urine Culture Reflexed (NO) Monoscreen (NEGATIVE) Influenza Type A Ag (NEGATIVE) Influenza Type B Ag (NEGATIVE) RSV (PCR) (NEGATIVE) SARS-CoV-2 (PCR) (NEGATIVE) 10/29/22 Range/Units 11:10 WBC (4.0-10.5) x10^3/uL RBC (4.1-5.4) x10^6/uL Hgb (12.0-16.0) g/dL Hct (35-47) % MCV (78-100) fL MCH (26-32) pg MCHC (32-36) g/dL RDW (11.5-14.0) % Plt Count (150-450) x10^3/uL MPV (7.5-11.0) fL Gran % (36.0-66.0) % Immature Gran % (Auto) (0.00-0.4) % Nucleat RBC Rel Count (0.00-0.1) % Eos # (Auto) (0-0.5) x10^3/uL Immature Gran # (Auto) (0.00-0.03) x10^3u/L Absolute Lymphs (auto) (1.0-4.6) x10^3/uL Absolute Monos (auto) (0.0-1.3) x10^3/uL Absolute Nucleated RBC (0.00-0.01) x10^3u/L Lymphocytes % (24.0-44.0) % Monocytes % (0.0-12.0) % Eosinophils % (0.00-5.0) % Basophils % (0.0-0.4) % Absolute Granulocytes (1.4-6.9) x10^3/uL Basophils # (0-0.4) x10^3/uL Sodium (137-145) mmol/L Potassium (3.5-5.1) mmol/L Chloride (98-107) mmol/L Carbon Dioxide (22-30) mmol/L Anion Gap (5-15) MEQ/L BUN (7-17) mg/dL Creatinine (0.52-1.04) mg/dL Estimated GFR ML/MIN Glucose (74-106) mg/dL POC Glucometer 76 (74 to 106) mg/dL Lactic Acid (0.4-2.0) Calcium (8.4-10.2) mg/dL Total Bilirubin (0.2-1.3) mg/dL AST (14-36) U/L ALT (0-35) U/L Alkaline Phosphatase (38-126) U/L NT-Pro-B Natriuret Pep (<300) pg/mL Serum Total Protein (6.3-8.2) g/dL Albumin (3.5-5.0) g/dL Amylase (30-110) U/L Lipase (23-300) U/L Free T4 (0.78-2.19) ng/dL TSH 3rd Generation (0.47-4.68) mIU/L Urine Color (Yellow) Urine Appearance (Clear) Urine pH (4.6-8.0) Ur Specific Hackett (1.005-1.030) Urine Protein (Negative) Urine Glucose (UA) (Negative) mg/dL Urine Ketones (Negative) Urine Blood (Negative) Urine Nitrite (Negative) Urine Bilirubin (Negative) Urine Urobilinogen (0.2) mg/dL Ur Leukocyte Esterase (Negative) U Hyaline Cast (Auto) (0-2) /LPF Urine Microscopic RBC (0-5) /HPF Urine Microscopic WBC (0-5) /HPF Ur Epithelial Cells (None Seen) /HPF Urine Bacteria (None Seen) /HPF Urine Culture Reflexed (NO) Monoscreen (NEGATIVE) Influenza Type A Ag (NEGATIVE) Influenza Type B Ag (NEGATIVE) RSV (PCR) (NEGATIVE) SARS-CoV-2 (PCR) (NEGATIVE) Accuchecks Date 10/29/22 Date 10/29/22 Time 11:12 Time 06:32 - Radiology Impressions Radiology Exams & Impressions: Radiology Procedures Category Date Time Status ABDOMEN AND PELVIS W/0 CONTRAS [CT] Stat Exams 10/28/22 20:39 Completed CHEST 1 VIEW (PORTABLE) Stat Exams 10/28/22 21:13 Completed Ultrasound Unilateral Extremities [VENOUS UNILAT/ Exams 10/29/22 08:40 Taken LIMITED EXTREMIT] [US] Stat Assessment/Plan (1) Colitis Current Visit: Yes Status: Acute Assessment & Plan: Pt is on day #2 of levaquin and flagyl. CLD. Will resume her creon. Consider steroid if not improving tomorrow. Code(s): K52.9 - NONINFECTIVE GASTROENTERITIS AND COLITIS, UNSPECIFIED (2) Hyponatremia Current Visit: Yes Status: Acute Assessment & Plan: On NS. Will avoid fluid restriction for now in light of patient's renal failure. Code(s): E87.1 - HYPO-OSMOLALITY AND HYPONATREMIA (3) Hypoalbuminemia Current Visit: Yes Status: Chronic Code(s): E88.09 - OTH DISORDERS OF PLASMA-PROTEIN METABOLISM, NEC (4) Diarrhea Current Visit: Yes Status: Acute Qualifiers: Diarrhea type: unspecified type Qualified Code(s): R19.7 - Diarrhea, unspecified Assessment & Plan: Will get stool studies including c. diff. Code(s): R19.7 - DIARRHEA, UNSPECIFIED (5) Hypocalcemia Current Visit: Yes Status: Ruled-out Assessment & Plan: corrected Ca is 8.46. Code(s): E83.51 - HYPOCALCEMIA (6) Pancreatic lesion Current Visit: Yes Status: Acute Code(s): K86.9 - DISEASE OF PANCREAS, UNSPECIFIED (7) Umbilical hernia Current Visit: Yes Status: Chronic Qualifiers: Obstruction and gangrene presence: without obstruction or gangrene Qualified Code(s): K42.9 - Umbilical hernia without obstruction or gangrene Code(s): K42.9 - UMBILICAL HERNIA WITHOUT OBSTRUCTION OR GANGRENE (8) Acute renal insufficiency Current Visit: Yes Status: Acute Assessment & Plan: Denies previous kidney issues Code(s): N28.9 - DISORDER OF KIDNEY AND URETER, UNSPECIFIED
[2022-10-29] MEDS: PATIENT OWN MEDICATION PO SCH ×2 (17:04→18:46)
--- NOTE | 2022-10-29 19:15 | XRAY ---
Indication: Right arm swelling. Two-dimensional sonogram and color Doppler imaging of the major venous vessels of the right upper extremity performed. Comparison: None No thrombus seen in the visualized right jugular, subclavian, axillary, basilic, brachial, median cubital, cephalic, radial, and ulnar veins. Veins demonstrate normal compressibility and normal venous waveforms. Impression: Right upper extremity negative for venous thrombosis. Comment: Preliminary report was given.
[2022-10-29] MEDS: MELATONIN PO PRN (21:35)
[2022-10-29] MEDS: ZOCOR 20MG PO SCH (21:35)
[2022-10-29] MEDS: Levaquin 250MG/50ML D5W 250 MG/50 ML BAG IV SCH (21:36)
[2022-10-29] MEDS ORDERED: NON-FORMULARY ITEM (Simvastatin 40 Mg [Zocor 40 Mg] 40 MG Tablet) PO SCH (22:00)
[2022-10-30] MEDS: TYLENOL 325 MG PO PRN ×2 (00:41→06:21)
[2022-10-30] MEDS: Sodium Chloride 0.9% 1000 ML 1,000 ML IV SCH ×2 (04:53→18:36)
[2022-10-30] MEDS: FLAGYL 500 MG IVPB 500 MG/100 ML BAG IV SCH ×3 (06:23→18:36)
[2022-10-30 08:10] LABS: Absolute Neutrophil Ct (ANC) 1.26 x10^3/uL (1.4-6.9); BASOPHIL % 0.3 % (0.0-0.4); Basophil (Absolute #) 0.01 x10^3/uL (0-0.4); Eosinophil % 1.7 % (0.00-5.0); Eosinophil (Absolute #) 0.06 x10^3/uL (0-0.5); Hematocrit 29.3 % (35-47); Hemoglobin 10.1 g/dL (12.0-16.0); IMMATURE GRAN # 0.03 x10^3u/L (0.00-0.03); IMMATURE GRAN % 0.9 % (0.00-0.4); Lymphocyte (Absolute #) 1.79 x10^3/uL (1.0-4.6); Lymphocytes % 51.4 % (24.0-44.0); Mean Cell Volume 89.1 fL (78-100); Mean Corpuscular Hemoglobin 30.7 pg (26-32); Mean Corpuscular Hgb Concent. 34.5 g/dL (32-36); Monocyte (Absolute #) 0.33 x10^3/uL (0.0-1.3); Monocytes % 9.5 % (0.0-12.0); Neutrophil % 36.2 % (36.0-66.0); Platelet Count 153 x10^3/uL (150-450); Red Blood Count 3.29 x10^6/uL (4.1-5.4); Red Cell Distribution Width 14.9 % (11.5-14.0); White Blood Count 3.5 x10^3/uL (4.0-10.5)
[2022-10-30] MEDS: PATIENT OWN MEDICATION PO SCH ×3 (08:12→17:01)
[2022-10-30 08:24] LABS: ALBUMIN 1.9 g/dL (3.5-5.0); ANION GAP 9.8 MEQ/L (5-15); BILIRUBIN,TOTAL 0.3 mg/dL (0.2-1.3); Calcium 6.4 mg/dL (8.4-10.2); Creatinine 1 1.09 mg/dL (0.52-1.04); EST GLOMERULAR FILTRATION RATE 51.3 ML/MIN; Total Protein 4.4 g/dL (6.3-8.2)
[2022-10-30] MEDS ORDERED: NON-FORMULARY ITEM (Potassium Chloride [Klor-Con 10] 10 MEQ Tablet.Er) PO SCH (10:00)
[2022-10-30] MEDS ORDERED: NON-FORMULARY ITEM (Fish Oil/Dha/Epa [Fish Oil 1,200 Mg Fish Oil] 1 EACH Capsule) PO SCH (10:00)
[2022-10-30] MEDS ORDERED: BABY ASPIRIN 81 MG CHEW PO SCH (10:00)
[2022-10-30] MEDS: FISH OIL 1,000 MG CAPSULE PO SCH (10:06)
[2022-10-30] MEDS: SYNTHROID 125 MCG PO SCH (10:06)
[2022-10-30] MEDS: ECOTRIN 81 MG PO SCH (10:06)
[2022-10-30] MEDS: Cozaar 50 MG PO SCH (10:06)
[2022-10-30] MEDS: NORVASC 5 MG PO SCH ×2 (10:06→21:42)
[2022-10-30] MEDS: Klor Con PO SCH (10:07)
[2022-10-30] MEDS ORDERED: Ativan 0.5 MG PO ONE (10:54)
[2022-10-30] MEDS ORDERED: Ativan 1 MG PO PRN (10:54)
[2022-10-30] MEDS ORDERED: Lactated Ringers 1,000 ML IV SCH (11:00)
--- NOTE | 2022-10-30 11:05 | PCM.NOTE ---
Date and Time: 10/30/22 1100 Subjective Assessment: Pt's main complaint is being tired, hasn't slept in 2 days. No vomiting or diarrhea, although it's now been 3d since the cholestiramine and she thinks she'll start having stools today. - Review of Systems Constitutional: No Fever Abdominal/Gastrointestinal: No Vomiting, No Diarrhea Objective Exam General Appearance: no apparent distress, other (lying in bed) Neurologic Exam: alert, normal mood/affect Skin Exam: normal color, warm, dry, No rash Eye Exam: eyes nml inspection Ears, Nose, Throat Exam: moist mucous membranes Neck Exam: normal inspection Respiratory Exam: normal breath sounds, lungs clear, No crackles/rales, No rhonchi, No wheezing Cardiovascular Exam: regular rate/rhythm, normal heart sounds, No murmur Gastrointestinal/Abdomen Exam: soft, normal bowel sounds, No tenderness, No d istention, No mass, No guarding, No rebound Extremity Exam: normal inspection, No pedal edema, No swelling, No tenderness Back Exam: normal inspection, No rash OBJECTIVE DATA Vital Signs: Vital Signs - 24 hr Temp Pulse Resp BP Pulse Ox 10/30/22 07:01 47.8 F 55 L 16 120/55 96 10/30/22 03:51 98.3 F 55 L 16 110/55 98 10/29/22 23:39 98.5 F 65 17 147/67 97 10/29/22 19:40 98.4 F 60 16 135/72 95 10/29/22 15:52 97.8 F 82 16 137/81 98 10/29/22 11:49 97.6 F 57 L 16 127/63 97 Pain Assessment - Last Documented Pain Intensity 3 Pain Scale Used 0-10 Pain Scale Intake and Output: Intake & Output 10/27/22 10/28/22 10/29/22 10/30/22 11:59 11:59 11:59 11:59 Intake Total 716 2293 Output Total 1100 1350 Balance -384 943 Weight 74.8 kg Lab Results: Lab Results-Last 24 Hours 10/29/22 10/29/22 10/29/22 Range/Units 05:16 05:16 11:10 WBC (4.0-10.5) x10^3/uL RBC (4.1-5.4) x10^6/uL Hgb (12.0-16.0) g/dL Hct (35-47) % MCV (78-100) fL MCH (26-32) pg MCHC (32-36) g/dL RDW (11.5-14.0) % Plt Count (150-450) x10^3/uL MPV (7.5-11.0) fL Gran % (36.0-66.0) % Immature Gran % (Auto) (0.00-0.4) % Nucleat RBC Rel Count (0.00-0.1) % Eos # (Auto) (0-0.5) x10^3/uL Immature Gran # (Auto) (0.00-0.03) x10^3u/L Absolute Lymphs (auto) (1.0-4.6) x10^3/uL Absolute Monos (auto) (0.0-1.3) x10^3/uL Absolute Nucleated RBC (0.00-0.01) x10^3u/L Lymphocytes % (24.0-44.0) % Monocytes % (0.0-12.0) % Eosinophils % (0.00-5.0) % Basophils % (0.0-0.4) % Absolute Granulocytes (1.4-6.9) x10^3/uL Basophils # (0-0.4) x10^3/uL Sodium (137-145) mmol/L Potassium (3.5-5.1) mmol/L Chloride (98-107) mmol/L Carbon Dioxide (22-30) mmol/L Anion Gap (5-15) MEQ/L BUN (7-17) mg/dL Creatinine (0.52-1.04) mg/dL Estimated GFR ML/MIN Glucose (74-106) mg/dL POC Glucometer 76 (74 to 106) mg/dL Calcium (8.4-10.2) mg/dL Total Bilirubin (0.2-1.3) mg/dL AST (14-36) U/L ALT (0-35) U/L Alkaline Phosphatase (38-126) U/L Serum Total Protein (6.3-8.2) g/dL Albumin (3.5-5.0) g/dL Free T4 0.34 L (0.78-2.19) ng/dL TSH 3rd Generation 30.800 H (0.47-4.68) mIU/L 10/29/22 10/29/22 10/30/22 Range/Units 16:14 20:32 06:30 WBC (4.0-10.5) x10^3/uL RBC (4.1-5.4) x10^6/uL Hgb (12.0-16.0) g/dL Hct (35-47) % MCV (78-100) fL MCH (26-32) pg MCHC (32-36) g/dL RDW (11.5-14.0) % Plt Count (150-450) x10^3/uL MPV (7.5-11.0) fL Gran % (36.0-66.0) % Immature Gran % (Auto) (0.00-0.4) % Nucleat RBC Rel Count (0.00-0.1) % Eos # (Auto) (0-0.5) x10^3/uL Immature Gran # (Auto) (0.00-0.03) x10^3u/L Absolute Lymphs (auto) (1.0-4.6) x10^3/uL Absolute Monos (auto) (0.0-1.3) x10^3/uL Absolute Nucleated RBC (0.00-0.01) x10^3u/L Lymphocytes % (24.0-44.0) % Monocytes % (0.0-12.0) % Eosinophils % (0.00-5.0) % Basophils % (0.0-0.4) % Absolute Granulocytes (1.4-6.9) x10^3/uL Basophils # (0-0.4) x10^3/uL Sodium (137-145) mmol/L Potassium (3.5-5.1) mmol/L Chloride (98-107) mmol/L Carbon Dioxide (22-30) mmol/L Anion Gap (5-15) MEQ/L BUN (7-17) mg/dL Creatinine (0.52-1.04) mg/dL Estimated GFR ML/MIN Glucose (74-106) mg/dL POC Glucometer 96 92 83 (74 to 106) mg/dL Calcium (8.4-10.2) mg/dL Total Bilirubin (0.2-1.3) mg/dL AST (14-36) U/L ALT (0-35) U/L Alkaline Phosphatase (38-126) U/L Serum Total Protein (6.3-8.2) g/dL Albumin (3.5-5.0) g/dL Free T4 (0.78-2.19) ng/dL TSH 3rd Generation (0.47-4.68) mIU/L 10/30/22 10/30/22 Range/Units 07:55 07:55 WBC 3.5 L (4.0-10.5) x10^3/uL RBC 3.29 L (4.1-5.4) x10^6/uL Hgb 10.1 L (12.0-16.0) g/dL Hct 29.3 L (35-47) % MCV 89.1 (78-100) fL MCH 30.7 (26-32) pg MCHC 34.5 (32-36) g/dL RDW 14.9 H (11.5-14.0) % Plt Count 153 (150-450) x10^3/uL MPV 10.0 (7.5-11.0) fL Gran % 36.2 (36.0-66.0) % Immature Gran % (Auto) 0.9 H (0.00-0.4) % Nucleat RBC Rel Count 0.0 (0.00-0.1) % Eos # (Auto) 0.06 (0-0.5) x10^3/uL Immature Gran # (Auto) 0.03 (0.00-0.03) x10^3u/L Absolute Lymphs (auto) 1.79 (1.0-4.6) x10^3/uL Absolute Monos (auto) 0.33 (0.0-1.3) x10^3/uL Absolute Nucleated RBC 0.00 (0.00-0.01) x10^3u/L Lymphocytes % 51.4 H (24.0-44.0) % Monocytes % 9.5 (0.0-12.0) % Eosinophils % 1.7 (0.00-5.0) % Basophils % 0.3 (0.0-0.4) % Absolute Granulocytes 1.26 L (1.4-6.9) x10^3/uL Basophils # 0.01 (0-0.4) x10^3/uL Sodium 127 L (137-145) mmol/L Potassium 4.0 (3.5-5.1) mmol/L Chloride 104 (98-107) mmol/L Carbon Dioxide 17 L (22-30) mmol/L Anion Gap 9.8 (5-15) MEQ/L BUN 6 L (7-17) mg/dL Creatinine 1.09 H (0.52-1.04) mg/dL Estimated GFR 51.3 ML/MIN Glucose 77 (74-106) mg/dL POC Glucometer (74 to 106) mg/dL Calcium 6.4 L (8.4-10.2) mg/dL Total Bilirubin 0.30 (0.2-1.3) mg/dL AST 39 H (14-36) U/L ALT 21 (0-35) U/L Alkaline Phosphatase 51 (38-126) U/L Serum Total Protein 4.4 L (6.3-8.2) g/dL Albumin 1.9 L (3.5-5.0) g/dL Free T4 (0.78-2.19) ng/dL TSH 3rd Generation (0.47-4.68) mIU/L Radiology Exams: Radiology Procedures Category Date Time Status ABDOMEN AND PELVIS W/0 CONTRAS [CT] Stat Exams 10/28/22 20:39 Completed CHEST 1 VIEW (PORTABLE) Stat Exams 10/28/22 21:13 Completed Ultrasound Unilateral Extremities [VENOUS UNILAT/ Exams 10/29/22 08:40 Completed LIMITED EXTREMIT] [US] Stat Assessment/Plan (1) Colitis Current Visit: Yes Status: Acute Assessment & Plan: On day #3 of shayan and ly. Will advance diet from CLD to FLD. Code(s): K52.9 - NONINFECTIVE GASTROENTERITIS AND COLITIS, UNSPECIFIED (2) Low CO2 Current Visit: Yes Status: Acute Assessment & Plan: ABG is pending, has decreased since admission from 19 to 17. (3) Diarrhea Current Visit: Yes Status: Chronic Qualifiers: Diarrhea type: unspecified type Qualified Code(s): R19.7 - Diarrhea, unspecified Assessment & Plan: checking for celiac dz and infectious etiologies. Code(s): R19.7 - DIARRHEA, UNSPECIFIED (4) Acute renal insufficiency Current Visit: Yes Status: Acute Assessment & Plan: improving, eGFR 51 today. Code(s): N28.9 - DISORDER OF KIDNEY AND URETER, UNSPECIFIED (5) Hyponatremia Current Visit: Yes Status: Acute Assessment & Plan: Will consult nephrology - this has been a problem after a surgery in the past, but she is not chronically hyponatremic. Code(s): E87.1 - HYPO-OSMOLALITY AND HYPONATREMIA (6) Hypoalbuminemia Current Visit: Yes Status: Chronic Code(s): E88.09 - OTH DISORDERS OF PLASMA-PROTEIN METABOLISM, NEC (7) Pancreatic lesion Current Visit: Yes Status: Acute Assessment & Plan: Will need to f/u outpatient with PCP Code(s): K86.9 - DISEASE OF PANCREAS, UNSPECIFIED (8) Umbilical hernia Current Visit: Yes Status: Chronic Qualifiers: Obstruction and gangrene presence: without obstruction or gangrene Qualified Code(s): K42.9 - Umbilical hernia without obstruction or gangrene Code(s): K42.9 - UMBILICAL HERNIA WITHOUT OBSTRUCTION OR GANGRENE
[2022-10-30 11:37] LABS: A-aADO2 -16; ABG HEMOGLOBIN 12.2; ABG POTASSIUM 4.2 (3.5-5.1); ARTERIAL BLD GAS O2 SATURATION 99.8 % (95-100); ARTERIAL BLOOD GAS BASE EXCESS -7.9 (-2.0-2.0); ARTERIAL BLOOD GAS FIO2 21 %; ARTERIAL BLOOD GAS PCO2 21 mmHg (35-45); ARTERIAL BLOOD GAS PO2 139 mmHg (75-100); ARTERIAL BLOOD GAS pH 7.44 (7.35-7.45); CARBOXYHEMOGLOBIN 1.4 % THgb (0.0-6.9); HCO3- 14.3 (22-28); HGB O2 SAT 97.9 g/dF (94-100); Methhemoglobin 0.5 % (1.4-1.5); paO2 pAO1 1.13
[2022-10-30 11:39] LABS: ABG SITE RIGHT BRACHIAL
[2022-10-30 13:55] LABS: 027 TOX PROD PRESUMPTIVE NEGATIVE (NEGATIVE); TOXIGENIC C. DIFF ORG NEGATIVE (NEGATIVE)
[2022-10-30 18:57] LABS: Creatinine, Urine Random 97.1 mg/dl; Protein Creatinine Ratio, Ran. 0.07 mg/mg (0.0-0.15)
[2022-10-30 19:19] LABS: ANION GAP 11.3 MEQ/L (5-15); Calcium 6.5 mg/dL (8.4-10.2); Creatinine 1 0.99 mg/dL (0.52-1.04); EST GLOMERULAR FILTRATION RATE 57.4 ML/MIN; Potassium 3.9 mmol/L (3.5-5.1)
[2022-10-30] MEDS ORDERED: Lactated Ringers 0 ML IV ONE (20:26)
[2022-10-30] MEDS: Levaquin 250MG/50ML D5W 250 MG/50 ML BAG IV SCH (21:41)
[2022-10-30] MEDS: ZOCOR 20MG PO SCH (21:42)
[2022-10-30] MEDS: Tessalon Perles 100 MG PO PRN (21:42)
[2022-10-30] MEDS: MELATONIN PO PRN (21:42)
[2022-10-31] MEDS: FLAGYL 500 MG IVPB 500 MG/100 ML BAG IV SCH ×3 (00:29→11:20)
[2022-10-31 00:31] LABS: ANION GAP 9.1 MEQ/L (5-15); BLOOD UREA NITROGEN 4 mg/dL (7-17); CHLORIDE 103 mmol/L (98-107); Calcium 6.3 mg/dL (8.4-10.2); Carbon Dioxide 17 mmol/L (22-30); Creatinine 1 0.92 mg/dL (0.52-1.04); EST GLOMERULAR FILTRATION RATE > 60.0 ML/MIN; Glucose 119 mg/dL (74-106); Potassium 3.7 mmol/L (3.5-5.1); SODIUM 126 mmol/L (137-145)
[2022-10-31 06:16] LABS: Absolute Neutrophil Ct (ANC) 1.32 x10^3/uL (1.4-6.9); BASOPHIL % 0.3 % (0.0-0.4); Basophil (Absolute #) 0.01 x10^3/uL (0-0.4); Eosinophil % 3.1 % (0.00-5.0); Hematocrit 28.8 % (35-47); Hemoglobin 9.9 g/dL (12.0-16.0); IMMATURE GRAN # 0.02 x10^3u/L (0.00-0.03); IMMATURE GRAN % 0.6 % (0.00-0.4); Lymphocyte (Absolute #) 1.46 x10^3/uL (1.0-4.6); Lymphocytes % 45.6 % (24.0-44.0); Mean Cell Volume 89.7 fL (78-100); Mean Corpuscular Hemoglobin 30.8 pg (26-32); Mean Corpuscular Hgb Concent. 34.4 g/dL (32-36); Mean Platelet Volume 10.2 fL (7.5-11.0); Monocyte (Absolute #) 0.29 x10^3/uL (0.0-1.3); Monocytes % 9.1 % (0.0-12.0); Neutrophil % 41.3 % (36.0-66.0); Platelet Count 149 x10^3/uL (150-450); Red Blood Count 3.21 x10^6/uL (4.1-5.4); Red Cell Distribution Width 15.1 % (11.5-14.0); White Blood Count 3.2 x10^3/uL (4.0-10.5)
[2022-10-31 06:29] LABS: ALBUMIN 1.8 g/dL (3.5-5.0); ALKALINE PHOSPHATASE 46 U/L (38-126); ANION GAP 11.4 MEQ/L (5-15); BLOOD UREA NITROGEN 4 mg/dL (7-17); CHLORIDE 104 mmol/L (98-107); Calcium 6.1 mg/dL (8.4-10.2); Creatinine 1 0.88 mg/dL (0.52-1.04); EST GLOMERULAR FILTRATION RATE > 60.0 ML/MIN; Glucose 89 mg/dL (74-106); Potassium 3.6 mmol/L (3.5-5.1); SGOT/AST 39 U/L (14-36); SGPT/ALT 18 U/L (0-35); SODIUM 127 mmol/L (137-145); Total Protein 4.2 g/dL (6.3-8.2)
[2022-10-31 06:34] LABS: Carbon Dioxide 17 mmol/L (22-30)
[2022-10-31] MEDS: PATIENT OWN MEDICATION PO SCH ×3 (07:44→16:31)
[2022-10-31] MEDS: Cozaar 50 MG PO SCH (08:26)
[2022-10-31] MEDS: Klor Con PO SCH (08:26)
[2022-10-31] MEDS: SYNTHROID 125 MCG PO SCH (08:27)
[2022-10-31] MEDS: ECOTRIN 81 MG PO SCH (08:27)
[2022-10-31] MEDS: FISH OIL 1,000 MG CAPSULE PO SCH (08:27)
[2022-10-31] MEDS ORDERED: SYNTHROID 25 MCG PO ONE (09:10)
[2022-10-31] MEDS: SYNTHROID 150 MCG PO SCH (10:02)
--- NOTE | 2022-10-31 12:17 | PCM.NOTE ---
Date and Time: 10/31/22 1212 Subjective Assessment: Pt slept last night with ativan. Has been tolerating full liquid diet wtihout vomiting, but does not have much appetite (didn't eat supper last night; has only had some jello this morning). Started having stools yesterday (has had diarrhea x 2). - Review of Systems Constitutional: No Fever Abdominal/Gastrointestinal: Diarrhea, No Vomiting Objective Exam General Appearance: no apparent distress, alert, other (lying in bed) Neurologic Exam: cooperative, normal mood/affect Skin Exam: normal color, warm, dry, No rash Eye Exam: eyes nml inspection Ears, Nose, Throat Exam: moist mucous membranes Neck Exam: normal inspection Respiratory Exam: normal breath sounds, lungs clear, No crackles/rales, No rhonchi, No wheezing Cardiovascular Exam: regular rate/rhythm, normal heart sounds, No murmur Gastrointestinal/Abdomen Exam: soft, normal bowel sounds, tenderness (epigastrum), No mass, No guarding, No rebound Extremity Exam: normal inspection, No pedal edema, No swelling Back Exam: normal inspection, No rash OBJECTIVE DATA Vital Signs: Vital Signs - 24 hr Temp Pulse Resp BP Pulse Ox 10/31/22 11:15 97.8 F 63 16 120/58 97 10/31/22 07:30 97.8 F 64 16 111/59 98 10/31/22 04:00 97.4 F 75 20 114/57 95 10/30/22 23:40 97.5 F 66 21 117/58 96 10/30/22 19:46 97.5 F 67 20 144/65 98 10/30/22 16:00 97.7 F 62 16 125/60 98 Pain Assessment - Last Documented Pain Intensity 0 Pain Scale Used 0-10 Pain Scale Intake and Output: Intake & Output 10/29/22 10/30/22 10/31/22 11/01/22 11:59 11:59 11:59 11:59 Intake Total 716 2293 3042 Output Total 1100 1350 400 Balance -083 202 3218 Weight 74.8 kg Lab Results: Lab Results-Last 24 Hours 10/30/22 10/30/22 10/30/22 Range/Units 12:54 12:54 16:34 WBC (4.0-10.5) x10^3/uL RBC (4.1-5.4) x10^6/uL Hgb (12.0-16.0) g/dL Hct (35-47) % MCV (78-100) fL MCH (26-32) pg MCHC (32-36) g/dL RDW (11.5-14.0) % Plt Count (150-450) x10^3/uL MPV (7.5-11.0) fL Gran % (36.0-66.0) % Immature Gran % (Auto) (0.00-0.4) % Nucleat RBC Rel Count (0.00-0.1) % Eos # (Auto) (0-0.5) x10^3/uL Immature Gran # (Auto) (0.00-0.03) x10^3u/L Absolute Lymphs (auto) (1.0-4.6) x10^3/uL Absolute Monos (auto) (0.0-1.3) x10^3/uL Absolute Nucleated RBC (0.00-0.01) x10^3u/L Lymphocytes % (24.0-44.0) % Monocytes % (0.0-12.0) % Eosinophils % (0.00-5.0) % Basophils % (0.0-0.4) % Absolute Granulocytes (1.4-6.9) x10^3/uL Basophils # (0-0.4) x10^3/uL Sodium (137-145) mmol/L Potassium (3.5-5.1) mmol/L Chloride (98-107) mmol/L Carbon Dioxide (22-30) mmol/L Anion Gap (5-15) MEQ/L BUN (7-17) mg/dL Creatinine (0.52-1.04) mg/dL Estimated GFR ML/MIN Glucose (74-106) mg/dL POC Glucometer 109 H (74 to 106) mg/dL Hemoglobin A1c (4.5-6.0) % Calcium (8.4-10.2) mg/dL Total Bilirubin (0.2-1.3) mg/dL AST (14-36) U/L ALT (0-35) U/L Alkaline Phosphatase (38-126) U/L Serum Total Protein (6.3-8.2) g/dL Albumin (3.5-5.0) g/dL Procalcitonin (0.030-0.080) ng/mL Ur Random Creatinine 97.1 mg/dl U Random Total Protein 7.0 (<12) mg/dl U Manning Prot/Creat Ratio 0.07 (0.0-0.15) mg/mg Urine Sodium 40 (30-90) mmol/L C. difficile Screen (NEGATIVE) C.difficile 027-NAP1-B1 (NEGATIVE) 10/30/22 10/30/22 10/30/22 Range/Units 18:40 20:59 Unknown WBC (4.0-10.5) x10^3/uL RBC (4.1-5.4) x10^6/uL Hgb (12.0-16.0) g/dL Hct (35-47) % MCV (78-100) fL MCH (26-32) pg MCHC (32-36) g/dL RDW (11.5-14.0) % Plt Count (150-450) x10^3/uL MPV (7.5-11.0) fL Gran % (36.0-66.0) % Immature Gran % (Auto) (0.00-0.4) % Nucleat RBC Rel Count (0.00-0.1) % Eos # (Auto) (0-0.5) x10^3/uL Immature Gran # (Auto) (0.00-0.03) x10^3u/L Absolute Lymphs (auto) (1.0-4.6) x10^3/uL Absolute Monos (auto) (0.0-1.3) x10^3/uL Absolute Nucleated RBC (0.00-0.01) x10^3u/L Lymphocytes % (24.0-44.0) % Monocytes % (0.0-12.0) % Eosinophils % (0.00-5.0) % Basophils % (0.0-0.4) % Absolute Granulocytes (1.4-6.9) x10^3/uL Basophils # (0-0.4) x10^3/uL Sodium 126 L (137-145) mmol/L Potassium 3.9 (3.5-5.1) mmol/L Chloride 103 (98-107) mmol/L Carbon Dioxide 16 L* (22-30) mmol/L Anion Gap 11.3 (5-15) MEQ/L BUN 5 L (7-17) mg/dL Creatinine 0.99 (0.52-1.04) mg/dL Estimated GFR 57.4 ML/MIN Glucose 118 H (74-106) mg/dL POC Glucometer 139 H (74 to 106) mg/dL Hemoglobin A1c (4.5-6.0) % Calcium 6.5 L (8.4-10.2) mg/dL Total Bilirubin (0.2-1.3) mg/dL AST (14-36) U/L ALT (0-35) U/L Alkaline Phosphatase (38-126) U/L Serum Total Protein (6.3-8.2) g/dL Albumin (3.5-5.0) g/dL Procalcitonin (0.030-0.080) ng/mL Ur Random Creatinine mg/dl U Random Total Protein (<12) mg/dl U Manning Prot/Creat Ratio (0.0-0.15) mg/mg Urine Sodium (30-90) mmol/L C. difficile Screen NEGATIVE (NEGATIVE) C.difficile 027-NAP1-B1 PRESUMPTIVE NEGATIVE (NEGATIVE) 10/31/22 10/31/22 10/31/22 Range/Units 00:15 05:00 05:00 WBC (4.0-10.5) x10^3/uL RBC (4.1-5.4) x10^6/uL Hgb (12.0-16.0) g/dL Hct (35-47) % MCV (78-100) fL MCH (26-32) pg MCHC (32-36) g/dL RDW (11.5-14.0) % Plt Count (150-450) x10^3/uL MPV (7.5-11.0) fL Gran % (36.0-66.0) % Immature Gran % (Auto) (0.00-0.4) % Nucleat RBC Rel Count (0.00-0.1) % Eos # (Auto) (0-0.5) x10^3/uL Immature Gran # (Auto) (0.00-0.03) x10^3u/L Absolute Lymphs (auto) (1.0-4.6) x10^3/uL Absolute Monos (auto) (0.0-1.3) x10^3/uL Absolute Nucleated RBC (0.00-0.01) x10^3u/L Lymphocytes % (24.0-44.0) % Monocytes % (0.0-12.0) % Eosinophils % (0.00-5.0) % Basophils % (0.0-0.4) % Absolute Granulocytes (1.4-6.9) x10^3/uL Basophils # (0-0.4) x10^3/uL Sodium 126 L (137-145) mmol/L Potassium 3.7 (3.5-5.1) mmol/L Chloride 103 (98-107) mmol/L Carbon Dioxide 17 L (22-30) mmol/L Anion Gap 9.1 (5-15) MEQ/L BUN 4 L (7-17) mg/dL Creatinine 0.92 (0.52-1.04) mg/dL Estimated GFR > 60.0 ML/MIN Glucose 119 H (74-106) mg/dL POC Glucometer (74 to 106) mg/dL Hemoglobin A1c 5.15 (4.5-6.0) % Calcium 6.3 L (8.4-10.2) mg/dL Total Bilirubin (0.2-1.3) mg/dL AST (14-36) U/L ALT (0-35) U/L Alkaline Phosphatase (38-126) U/L Serum Total Protein (6.3-8.2) g/dL Albumin (3.5-5.0) g/dL Procalcitonin 0.757 H (0.030-0.080) ng/mL Ur Random Creatinine mg/dl U Random Total Protein (<12) mg/dl U Manning Prot/Creat Ratio (0.0-0.15) mg/mg Urine Sodium (30-90) mmol/L C. difficile Screen (NEGATIVE) C.difficile 027-NAP1-B1 (NEGATIVE) 10/31/22 10/31/22 10/31/22 Range/Units 06:00 06:00 06:56 WBC 3.2 L (4.0-10.5) x10^3/uL RBC 3.21 L (4.1-5.4) x10^6/uL Hgb 9.9 L (12.0-16.0) g/dL Hct 28.8 L (35-47) % MCV 89.7 (78-100) fL MCH 30.8 (26-32) pg MCHC 34.4 (32-36) g/dL RDW 15.1 H (11.5-14.0) % Plt Count 149 L (150-450) x10^3/uL MPV 10.2 (7.5-11.0) fL Gran % 41.3 (36.0-66.0) % Immature Gran % (Auto) 0.6 H (0.00-0.4) % Nucleat RBC Rel Count 0.0 (0.00-0.1) % Eos # (Auto) 0.10 (0-0.5) x10^3/uL Immature Gran # (Auto) 0.02 (0.00-0.03) x10^3u/L Absolute Lymphs (auto) 1.46 (1.0-4.6) x10^3/uL Absolute Monos (auto) 0.29 (0.0-1.3) x10^3/uL Absolute Nucleated RBC 0.00 (0.00-0.01) x10^3u/L Lymphocytes % 45.6 H (24.0-44.0) % Monocytes % 9.1 (0.0-12.0) % Eosinophils % 3.1 (0.00-5.0) % Basophils % 0.3 (0.0-0.4) % Absolute Granulocytes 1.32 L (1.4-6.9) x10^3/uL Basophils # 0.01 (0-0.4) x10^3/uL Sodium 127 L (137-145) mmol/L Potassium 3.6 (3.5-5.1) mmol/L Chloride 104 (98-107) mmol/L Carbon Dioxide 17 L (22-30) mmol/L Anion Gap 11.4 (5-15) MEQ/L BUN 4 L (7-17) mg/dL Creatinine 0.88 (0.52-1.04) mg/dL Estimated GFR > 60.0 ML/MIN Glucose 89 (74-106) mg/dL POC Glucometer 86 (74 to 106) mg/dL Hemoglobin A1c (4.5-6.0) % Calcium 6.1 L (8.4-10.2) mg/dL Total Bilirubin 0.30 (0.2-1.3) mg/dL AST 39 H (14-36) U/L ALT 18 (0-35) U/L Alkaline Phosphatase 46 (38-126) U/L Serum Total Protein 4.2 L (6.3-8.2) g/dL Albumin 1.8 L (3.5-5.0) g/dL Procalcitonin (0.030-0.080) ng/mL Ur Random Creatinine mg/dl U Random Total Protein (<12) mg/dl U Manning Prot/Creat Ratio (0.0-0.15) mg/mg Urine Sodium (30-90) mmol/L C. difficile Screen (NEGATIVE) C.difficile 027-NAP1-B1 (NEGATIVE) 10/31/22 Range/Units 11:00 WBC (4.0-10.5) x10^3/uL RBC (4.1-5.4) x10^6/uL Hgb (12.0-16.0) g/dL Hct (35-47) % MCV (78-100) fL MCH (26-32) pg MCHC (32-36) g/dL RDW (11.5-14.0) % Plt Count (150-450) x10^3/uL MPV (7.5-11.0) fL Gran % (36.0-66.0) % Immature Gran % (Auto) (0.00-0.4) % Nucleat RBC Rel Count (0.00-0.1) % Eos # (Auto) (0-0.5) x10^3/uL Immature Gran # (Auto) (0.00-0.03) x10^3u/L Absolute Lymphs (auto) (1.0-4.6) x10^3/uL Absolute Monos (auto) (0.0-1.3) x10^3/uL Absolute Nucleated RBC (0.00-0.01) x10^3u/L Lymphocytes % (24.0-44.0) % Monocytes % (0.0-12.0) % Eosinophils % (0.00-5.0) % Basophils % (0.0-0.4) % Absolute Granulocytes (1.4-6.9) x10^3/uL Basophils # (0-0.4) x10^3/uL Sodium (137-145) mmol/L Potassium (3.5-5.1) mmol/L Chloride (98-107) mmol/L Carbon Dioxide (22-30) mmol/L Anion Gap (5-15) MEQ/L BUN (7-17) mg/dL Creatinine (0.52-1.04) mg/dL Estimated GFR ML/MIN Glucose (74-106) mg/dL POC Glucometer 99 (74 to 106) mg/dL Hemoglobin A1c (4.5-6.0) % Calcium (8.4-10.2) mg/dL Total Bilirubin (0.2-1.3) mg/dL AST (14-36) U/L ALT (0-35) U/L Alkaline Phosphatase (38-126) U/L Serum Total Protein (6.3-8.2) g/dL Albumin (3.5-5.0) g/dL Procalcitonin (0.030-0.080) ng/mL Ur Random Creatinine mg/dl U Random Total Protein (<12) mg/dl U Manning Prot/Creat Ratio (0.0-0.15) mg/mg Urine Sodium (30-90) mmol/L C. difficile Screen (NEGATIVE) C.difficile 027-NAP1-B1 (NEGATIVE) Multi-Disciplinary Progress Notes: Multi-Disciplinary Progress Notes 10/31/22 10:15 Case Management Note by Ce Montanez S/W PATIENT. SHE CONTINUES TO DENY ANY NEW NEEDS AT [place] AT THIS TIME. SHE DID SAY THAT IF SHE DECIDES THAT SHE NEEDS HHC AT [place], SHE WOULD WANT TO USE [facility] (WHO SHE USED IN PAST). DOES NOT WANT SET UP AT THIS TIME, BUT MAY CONSIDER IT LATER. WILL F/U WIT PATIENT PRIOR TO DC. Initialized on 10/31/22 10:15 - END OF NOTE Assessment/Plan (1) Colitis Current Visit: Yes Status: Acute Assessment & Plan: Procalcitonin is elevated, 0.7. On Levaquin and flagyl day #4. Stool studies now pending for infection, as well as serum celiac panel. Would consider re-imaging her abdomen. Diarrhea has been somewhat longstanding. Discussed that colonoscopy may be necessary outpatient but usually prefer to wait until acute infection has resolved. IV and lab access is becoming problematic - may need PICC placed. Concern for metabolic acidosis - with elevated procalcitonin - change levaquin and flagyl to meropenem (discussed with pharmacy). Code(s): K52.9 - NONINFECTIVE GASTROENTERITIS AND COLITIS, UNSPECIFIED (2) Low CO2 Current Visit: Yes Status: Acute Assessment & Plan: Dr. Martinez consulted, thank you. Possibly related to metabolic acidosis due to current abdominal infection. (3) Diarrhea Current Visit: Yes Status: Chronic Qualifiers: Diarrhea type: unspecified type Qualified Code(s): R19.7 - Diarrhea, unspecified Code(s): R19.7 - DIARRHEA, UNSPECIFIED (4) Acute renal insufficiency Current Visit: Yes Status: Resolved Code(s): N28.9 - DISORDER OF KIDNEY AND URETER, UNSPECIFIED (5) Hyponatremia Current Visit: Yes Status: Acute Code(s): E87.1 - HYPO-OSMOLALITY AND HYPONATREMIA (6) Hypoalbuminemia Current Visit: Yes Status: Chronic Assessment & Plan: Started on Boost per Dr. Martinez, thank you. Code(s): E88.09 - OTH DISORDERS OF PLASMA-PROTEIN METABOLISM, NEC (7) Pancreatic lesion Current Visit: Yes Status: Acute Assessment & Plan: Will need further evaluation. Less likely Madhuri-Skinner or VIPoma. Code(s): K86.9 - DISEASE OF PANCREAS, UNSPECIFIED (8) Umbilical hernia Current Visit: Yes Status: Chronic Qualifiers: Obstruction and gangrene presence: without obstruction or gangrene Qualified Code(s): K42.9 - Umbilical hernia without obstruction or gangrene Code(s): K42.9 - UMBILICAL HERNIA WITHOUT OBSTRUCTION OR GANGRENE (9) Hypothyroid Current Visit: Yes Status: Acute Qualifiers: Hypothyroidism type: acquired Qualified Code(s): E03.9 - Hypothyroidism, unspecified Assessment & Plan: TSH 30. Pt is cold intolerant. Increase synthroid from 125mcg to 150mcg/d. Code(s): E03.9 - HYPOTHYROIDISM, UNSPECIFIED
[2022-10-31 13:08] LABS: Triiodothyronine (T3) 53 ng/dL (71-180)
[2022-10-31] MEDS: Merrem 1 GM in Sodium Chloride 100ML MINI-BAG PLUS 100 ML IV SCH ×2 (14:16→21:23)
[2022-10-31] MEDS: Acidophilus TABLET PO SCH ×2 (14:18→21:24)
[2022-10-31 14:51] LABS: PTH, Intact 36 pg/mL (15-65)
[2022-10-31] MEDS: Sodium Chloride 0.9% 1000 ML 1,000 ML IV SCH (18:24)
[2022-10-31 19:12] LABS: ALBUMIN 1.7 g/dL (3.5-5.0); ALKALINE PHOSPHATASE 34 U/L (38-126); ANION GAP 12.3 MEQ/L (5-15); BLOOD UREA NITROGEN 3 mg/dL (7-17); CHLORIDE 102 mmol/L (98-107); Creatinine 1 0.79 mg/dL (0.52-1.04); EST GLOMERULAR FILTRATION RATE > 60.0 ML/MIN; Glucose 136 mg/dL (74-106); SGOT/AST 40 U/L (14-36); SGPT/ALT 19 U/L (0-35); SODIUM 124 mmol/L (137-145); Total Protein 4.2 g/dL (6.3-8.2)
[2022-10-31 19:17] LABS: Calcium 6.1 mg/dL (8.4-10.2)
[2022-10-31 19:20] LABS: Carbon Dioxide 16 mmol/L (22-30)
[2022-10-31] MEDS ORDERED: TOLVAPTAN PO ONE (19:29)
[2022-10-31] MEDS: NORVASC 5 MG PO SCH (21:24)
[2022-10-31] MEDS: ZOCOR 20MG PO SCH (21:24)
[2022-11-01 05:19] LABS: Absolute Neutrophil Ct (ANC) 2.22 x10^3/uL (1.4-6.9); BASOPHIL % 0.5 % (0.0-0.4); Basophil (Absolute #) 0.02 x10^3/uL (0-0.4); Eosinophil % 4.4 % (0.00-5.0); Eosinophil (Absolute #) 0.19 x10^3/uL (0-0.5); Hematocrit 29.7 % (35-47); Hemoglobin 10.1 g/dL (12.0-16.0); IMMATURE GRAN # 0.03 x10^3u/L (0.00-0.03); IMMATURE GRAN % 0.7 % (0.00-0.4); Lymphocyte (Absolute #) 1.47 x10^3/uL (1.0-4.6); Lymphocytes % 33.8 % (24.0-44.0); Mean Cell Volume 90.5 fL (78-100); Mean Corpuscular Hemoglobin 30.8 pg (26-32); Mean Platelet Volume 10.5 fL (7.5-11.0); Monocyte (Absolute #) 0.42 x10^3/uL (0.0-1.3); Monocytes % 9.7 % (0.0-12.0); Neutrophil % 50.9 % (36.0-66.0); Platelet Count 163 x10^3/uL (150-450); Red Blood Count 3.28 x10^6/uL (4.1-5.4); Red Cell Distribution Width 15.3 % (11.5-14.0); White Blood Count 4.4 x10^3/uL (4.0-10.5)
[2022-11-01 05:47] LABS: ALBUMIN 1.7 g/dL (3.5-5.0); ALKALINE PHOSPHATASE 47 U/L (38-126); ANION GAP 8.9 MEQ/L (5-15); BLOOD UREA NITROGEN 3 mg/dL (7-17); CHLORIDE 105 mmol/L (98-107); Calcium 6.5 mg/dL (8.4-10.2); Carbon Dioxide 17 mmol/L (22-30); Creatinine 1 0.83 mg/dL (0.52-1.04); EST GLOMERULAR FILTRATION RATE > 60.0 ML/MIN; Glucose 93 mg/dL (74-106); SGOT/AST 42 U/L (14-36); SGPT/ALT 20 U/L (0-35); SODIUM 126 mmol/L (137-145); Total Protein 4.1 g/dL (6.3-8.2)
[2022-11-01] MEDS: Merrem 1 GM in Sodium Chloride 100ML MINI-BAG PLUS 100 ML IV SCH ×2 (06:21→13:12)
[2022-11-01] MEDS: SYNTHROID 150 MCG PO SCH (07:33)
[2022-11-01] MEDS: PATIENT OWN MEDICATION PO SCH ×3 (07:33→16:44)
[2022-11-01] MEDS: FISH OIL 1,000 MG CAPSULE PO SCH (09:24)
[2022-11-01] MEDS: ECOTRIN 81 MG PO SCH (09:24)
[2022-11-01] MEDS: Acidophilus TABLET PO SCH ×2 (09:25→15:37)
[2022-11-01] MEDS: Klor Con PO SCH (09:25)
[2022-11-01] MEDS: Cozaar 50 MG PO SCH (09:25)
--- NOTE | 2022-11-01 10:56 | PCM.NOTE ---
Date and Time: 11/01/22 1051 Subjective Assessment: Pt is feeling okay, just got cleaned up. Still only eating small amounts; this apparently has been going on for the past 1 month. She has produced small amounts of stools, not enough to send off to lab. Denies abd pain. - Review of Systems Constitutional: No Fever Abdominal/Gastrointestinal: Diarrhea, No Vomiting Objective Exam General Appearance: no apparent distress, alert Neurologic Exam: cooperative, normal mood/affect Skin Exam: normal color, warm, dry, No rash Ears, Nose, Throat Exam: moist mucous membranes Neck Exam: normal inspection Respiratory Exam: normal breath sounds, lungs clear, No crackles/rales, No rhonchi, No wheezing Cardiovascular Exam: regular rate/rhythm, normal heart sounds, No murmur Gastrointestinal/Abdomen Exam: soft, normal bowel sounds, No tenderness, No distention, No mass, No guarding, No rebound Extremity Exam: normal inspection, No pedal edema, No swelling OBJECTIVE DATA Vital Signs: Vital Signs - 24 hr Temp Pulse Resp BP Pulse Ox 11/01/22 07:38 98.6 F 62 15 108/55 97 11/01/22 04:00 98.6 F 61 17 105/59 97 11/01/22 00:00 98.7 F 73 17 127/65 96 10/31/22 19:50 97.5 F 64 18 107/57 97 10/31/22 16:00 97.8 F 66 16 114/60 97 10/31/22 11:15 97.8 F 63 16 120/58 97 Pain Assessment - Last Documented Pain Intensity 0 Pain Scale Used 0-10 Pain Scale Intake and Output: Intake & Output 10/29/22 10/30/22 10/31/22 11/01/22 11:59 11:59 11:59 11:59 Intake Total 716 2293 3042 1899 Output Total 1100 6001 133 8969 Balance -947 535 3216 649 Weight 74.8 kg Lab Results: Lab Results-Last 24 Hours 10/29/22 10/30/22 10/31/22 Range/Units 05:16 11:30 11:00 WBC (4.0-10.5) x10^3/uL RBC (4.1-5.4) x10^6/uL Hgb (12.0-16.0) g/dL Hct (35-47) % MCV (78-100) fL MCH (26-32) pg MCHC (32-36) g/dL RDW (11.5-14.0) % Plt Count (150-450) x10^3/uL MPV (7.5-11.0) fL Gran % (36.0-66.0) % Immature Gran % (Auto) (0.00-0.4) % Nucleat RBC Rel Count (0.00-0.1) % Eos # (Auto) (0-0.5) x10^3/uL Immature Gran # (Auto) (0.00-0.03) x10^3u/L Absolute Lymphs (auto) (1.0-4.6) x10^3/uL Absolute Monos (auto) (0.0-1.3) x10^3/uL Absolute Nucleated RBC (0.00-0.01) x10^3u/L Lymphocytes % (24.0-44.0) % Monocytes % (0.0-12.0) % Eosinophils % (0.00-5.0) % Basophils % (0.0-0.4) % Absolute Granulocytes (1.4-6.9) x10^3/uL Basophils # (0-0.4) x10^3/uL Sodium (137-145) mmol/L Potassium (3.5-5.1) mmol/L Chloride (98-107) mmol/L Carbon Dioxide (22-30) mmol/L Anion Gap (5-15) MEQ/L BUN (7-17) mg/dL Creatinine (0.52-1.04) mg/dL Estimated GFR ML/MIN Glucose (74-106) mg/dL POC Glucometer 99 (74 to 106) mg/dL Calcium (8.4-10.2) mg/dL Total Bilirubin (0.2-1.3) mg/dL AST (14-36) U/L ALT (0-35) U/L Alkaline Phosphatase (38-126) U/L Serum Total Protein (6.3-8.2) g/dL Albumin (3.5-5.0) g/dL Total T3 53 L (71-180) ng/dL PTH Intact Whole Molec 36 (15-65) pg/mL IgA 385 (64-422) mg/dL Tiss Transglutamin IgA <2 (0-3) U/mL Gliadin (Deamidat) IgA 5 (0-19) units 10/31/22 10/31/22 10/31/22 Range/Units 15:39 18:55 20:50 WBC (4.0-10.5) x10^3/uL RBC (4.1-5.4) x10^6/uL Hgb (12.0-16.0) g/dL Hct (35-47) % MCV (78-100) fL MCH (26-32) pg MCHC (32-36) g/dL RDW (11.5-14.0) % Plt Count (150-450) x10^3/uL MPV (7.5-11.0) fL Gran % (36.0-66.0) % Immature Gran % (Auto) (0.00-0.4) % Nucleat RBC Rel Count (0.00-0.1) % Eos # (Auto) (0-0.5) x10^3/uL Immature Gran # (Auto) (0.00-0.03) x10^3u/L Absolute Lymphs (auto) (1.0-4.6) x10^3/uL Absolute Monos (auto) (0.0-1.3) x10^3/uL Absolute Nucleated RBC (0.00-0.01) x10^3u/L Lymphocytes % (24.0-44.0) % Monocytes % (0.0-12.0) % Eosinophils % (0.00-5.0) % Basophils % (0.0-0.4) % Absolute Granulocytes (1.4-6.9) x10^3/uL Basophils # (0-0.4) x10^3/uL Sodium 124 L (137-145) mmol/L Potassium 4.0 (3.5-5.1) mmol/L Chloride 102 (98-107) mmol/L Carbon Dioxide 16 L* (22-30) mmol/L Anion Gap 12.3 (5-15) MEQ/L BUN 3 L (7-17) mg/dL Creatinine 0.79 (0.52-1.04) mg/dL Estimated GFR > 60.0 ML/MIN Glucose 136 H (74-106) mg/dL POC Glucometer 142 H 147 H (74 to 106) mg/dL Calcium 6.1 L (8.4-10.2) mg/dL Total Bilirubin 0.40 (0.2-1.3) mg/dL AST 40 H (14-36) U/L ALT 19 (0-35) U/L Alkaline Phosphatase 34 L (38-126) U/L Serum Total Protein 4.2 L (6.3-8.2) g/dL Albumin 1.7 L (3.5-5.0) g/dL Total T3 (71-180) ng/dL PTH Intact Whole Molec (15-65) pg/mL IgA (64-422) mg/dL Tiss Transglutamin IgA (0-3) U/mL Gliadin (Deamidat) IgA (0-19) units 11/01/22 11/01/22 Range/Units 04:50 04:50 WBC 4.4 (4.0-10.5) x10^3/uL RBC 3.28 L (4.1-5.4) x10^6/uL Hgb 10.1 L (12.0-16.0) g/dL Hct 29.7 L (35-47) % MCV 90.5 (78-100) fL MCH 30.8 (26-32) pg MCHC 34.0 (32-36) g/dL RDW 15.3 H (11.5-14.0) % Plt Count 163 (150-450) x10^3/uL MPV 10.5 (7.5-11.0) fL Gran % 50.9 (36.0-66.0) % Immature Gran % (Auto) 0.7 H (0.00-0.4) % Nucleat RBC Rel Count 0.0 (0.00-0.1) % Eos # (Auto) 0.19 (0-0.5) x10^3/uL Immature Gran # (Auto) 0.03 (0.00-0.03) x10^3u/L Absolute Lymphs (auto) 1.47 (1.0-4.6) x10^3/uL Absolute Monos (auto) 0.42 (0.0-1.3) x10^3/uL Absolute Nucleated RBC 0.00 (0.00-0.01) x10^3u/L Lymphocytes % 33.8 (24.0-44.0) % Monocytes % 9.7 (0.0-12.0) % Eosinophils % 4.4 (0.00-5.0) % Basophils % 0.5 (0.0-0.4) % Absolute Granulocytes 2.22 (1.4-6.9) x10^3/uL Basophils # 0.02 (0-0.4) x10^3/uL Sodium 126 L (137-145) mmol/L Potassium 4.0 (3.5-5.1) mmol/L Chloride 105 (98-107) mmol/L Carbon Dioxide 17 L (22-30) mmol/L Anion Gap 8.9 (5-15) MEQ/L BUN 3 L (7-17) mg/dL Creatinine 0.83 (0.52-1.04) mg/dL Estimated GFR > 60.0 ML/MIN Glucose 93 (74-106) mg/dL POC Glucometer (74 to 106) mg/dL Calcium 6.5 L (8.4-10.2) mg/dL Total Bilirubin 0.30 (0.2-1.3) mg/dL AST 42 H (14-36) U/L ALT 20 (0-35) U/L Alkaline Phosphatase 47 (38-126) U/L Serum Total Protein 4.1 L (6.3-8.2) g/dL Albumin 1.7 L (3.5-5.0) g/dL Total T3 (71-180) ng/dL PTH Intact Whole Molec (15-65) pg/mL IgA (64-422) mg/dL Tiss Transglutamin IgA (0-3) U/mL Gliadin (Deamidat) IgA (0-19) units Radiology Exams: Radiology Procedures Category Date Time Status ABDOMEN AND PELVIS W CONTRAST [CT] Urgent Exams 11/01/22 11:00 Ordered Multi-Disciplinary Progress Notes: Multi-Disciplinary Progress Notes 11/01/22 08:51 Case Management Note by Ce Montanez S/W PATIENT AND SHE HAS DECIDED THAT SHE COULD USE [facility] WHEN DC'D. THINKS SHE USED [facility] IN PAST AND WOULD LIKE THEM AGAIN. REFERRAL FAXED TO [facility]. THEY WILL NEED NOTIFIED AT TIME OF DC AT [phone]. THEY WILL NEED FAXED THE DC INSTRUCTIONS, DC ED LIST AND DC SUMMARY (IF AVAILABLE) TO [phone]. Initialized on 11/01/22 08:51 - END OF NOTE Assessment/Plan (1) Colitis Current Visit: Yes Status: Acute Assessment & Plan: Yesterday changed her from IV levaquin and flagyl to IV meropenem. Recheck CT abd/pelvis with PO CONTRAST ONLY (I told radiology and RN). Her procalcitonin was quite elevated; will recheck. WBC are nl. She is not having abd pain, and in fact the diarrhea is less. However, her electrolyte abnormalities persist. After CT results are in, will discuss case with Dr. Martinez as it may be time to transfer pt to higher level of care. Code(s): K52.9 - NONINFECTIVE GASTROENTERITIS AND COLITIS, UNSPECIFIED (2) Low CO2 Current Visit: Yes Status: Acute Assessment & Plan: Persistent at 17 (3) Diarrhea Current Visit: Yes Status: Chronic Qualifiers: Diarrhea type: unspecified type Qualified Code(s): R19.7 - Diarrhea, unspecified Code(s): R19.7 - DIARRHEA, UNSPECIFIED (4) Hyponatremia Current Visit: Yes Status: Acute Code(s): E87.1 - HYPO-OSMOLALITY AND HYPONATREMIA (5) Hypoalbuminemia Current Visit: Yes Status: Chronic Code(s): E88.09 - OTH DISORDERS OF PLASMA-PROTEIN METABOLISM, NEC (6) Pancreatic lesion Current Visit: Yes Status: Acute Assessment & Plan: recheck ct abd/pelvis today Code(s): K86.9 - DISEASE OF PANCREAS, UNSPECIFIED (7) Umbilical hernia Current Visit: Yes Status: Chronic Qualifiers: Obstruction and gangrene presence: without obstruction or gangrene Qualified Code(s): K42.9 - Umbilical hernia without obstruction or gangrene Code(s): K42.9 - UMBILICAL HERNIA WITHOUT OBSTRUCTION OR GANGRENE (8) Hypothyroid Current Visit: Yes Status: Acute Qualifiers: Hypothyroidism type: acquired Qualified Code(s): E03.9 - Hypothyroidism, unspecified Assessment & Plan: increased synthroid from 125 to 150mcg/d d/t TSH of 30. Understand that this can be more acute than chronic; will need followed closely. Code(s): E03.9 - HYPOTHYROIDISM, UNSPECIFIED
[2022-11-01 12:48] LABS: ALBUMIN 2.1 g/dL (3.5-5.0); ALKALINE PHOSPHATASE 47 U/L (38-126); CHLORIDE 106 mmol/L (98-107); Calcium 6.7 mg/dL (8.4-10.2); Creatinine 1 0.84 mg/dL (0.52-1.04); EST GLOMERULAR FILTRATION RATE > 60.0 ML/MIN; Glucose 128 mg/dL (74-106); Potassium 4.1 mmol/L (3.5-5.1); SGOT/AST 46 U/L (14-36); SGPT/ALT 24 U/L (0-35); SODIUM 129 mmol/L (137-145); Total Protein 4.9 g/dL (6.3-8.2)
[2022-11-01 12:55] LABS: BLOOD UREA NITROGEN 2 mg/dL (7-17)
[2022-11-01 12:57] LABS: Carbon Dioxide 15 mmol/L (22-30)
[2022-11-01] MEDS ORDERED: Sodium Bicarbonate 50 MEQ/50 ML VIAL*** 150 MEQ in Dextrose 5%/Water IV Soln. 1000 ML 8... IV SCH (14:30)
[2022-11-01] MEDS ORDERED: SODIUM BICARBONATE PO SCH (15:00)
[2022-11-01 15:49] VITALS: O2SAT 97
--- NOTE | 2022-11-01 15:53 | XRAY ---
Indication: Colitis. Multiple contiguous axial images obtained through the abdomen and pelvis using enteric contrast only as ordered. Comparison: October 28, 2022 Lung bases demonstrate new incompletely visualized moderate effusion. Heart not enlarged. Again small hiatal hernia. Contrasted stomach and bowel loops appear nonobstructed. Appendix not visualized. Previous ascending pericolonic stranding has resolved. Stable scattered descending/sigmoid diverticulosis, tiny pancreatic cyst, left renal cysts, and cholecystectomy. New tiny free fluid along left/right colic gutter and pelvis. No free air. Remaining liver, pancreas, spleen, adrenal glands, kidneys, ureters, bladder, and uterus are unremarkable for noncontrast exam. Again moderate scattered vascular calcifications without AAA. New moderate diffuse anasarca. Stable moderate sized right periumbilical fatty ventral hernia. Impression: 1. New moderate bibasilar effusions, abdomen/pelvic free fluid, and diffuse anasarca. Rule out mild/early cardiac decompensation versus fluid overload. 2. Again chronic findings including hiatal hernia, colonic diverticulosis, pancreatic cyst, left renal cysts, arteriosclerotic disease, and fatty periumbilical hernia.
[2022-11-01] MEDS ORDERED: Lasix 20 MG/2 ML IV SCH (17:00)
[2022-11-01] MEDS ORDERED: TOLVAPTAN PO ONE (19:29)
[2022-11-01 19:44] VITALS: BP 118/93; PULSE 78
[2022-11-03 06:10] LABS: Adenovirus F40/41 Not Detected (Not Detected); Astrovirus Not Detected (Not Detected); Campylobacter Not Detected (Not Detected); Cryptosporidium Not Detected (Not Detected); Cyclospora cayetanensis Not Detected (Not Detected); Entamoeba histolytica Not Detected (Not Detected); Enteroaggregative E coli Not Detected (Not Detected); Enterpathogenic E coli Not Detected (Not Detected); Entertoxigenic E coli Not Detected (Not Detected); Giardia lamblia Not Detected (Not Detected); Norovirus GI/GII Not Detected (Not Detected); Plesiomonas shigelloides Not Detected (Not Detected); Rotavirus A Not Detected (Not Detected); Salmonella Not Detected (Not Detected); Shig-toxin-producing E coli Not Detected (Not Detected); Shigella/Enterinvasive E coli Not Detected (Not Detected); Vibrio Not Detected (Not Detected); Vibrio cholerae Not Detected (Not Detected); Yersinia enterocolitica Not Detected (Not Detected)
[2022-11-03 08:41] LABS: Sapovirus Not Detected (Not Detected)
[2022-11-16] MEDS ORDERED: Cyanocobalamin B-12 1000 MCG/ML IJ SCH (10:00)
== END 2022-11-01 20:35 | disposition short-term general hospital (02) | DRG 392 ==
LOC: ED 20:12 → MED SURG 10-29 00:02 → OBSVTOIN 10-29 14:11
PROVIDERS: ADMIT Family Medicine; ATTEND Family Medicine
DX: K52.9 Noninfective gastroenteritis and colitis, unspecified (principal); E87.1 Hypo-osmolality and hyponatremia; E88.09 Other disorders of plasma-protein metabolism, not elsewhere classified; E83.51 Hypocalcemia; K86.9 Disease of pancreas, unspecified; K42.9 Umbilical hernia without obstruction or gangrene; N28.9 Disorder of kidney and ureter, unspecified; I25.10 Atherosclerotic heart disease of native coronary artery without angina pectoris; E78.5 Hyperlipidemia, unspecified; I10 Essential (primary) hypertension; E11.9 Type 2 diabetes mellitus without complications; E03.9 Hypothyroidism, unspecified; Z79.899 Other long term (current) drug therapy; Z20.828 Contact with and (suspected) exposure to other viral communicable diseases
CPT/HCPCS: 0241U; 36000; 36415; 36600; 71045; 74176; 80048; 80053; 81001; 82150; 82375; 82570; 82784; 82803; 82947; 83036; 83605; 83690; 83880; 83935; 83970; 84145; 84156; 84300; 84439; 84443; 84480; 85025; 86258; 86308; 86364; 87040; 87493; 87507; 93971; 99285; J1940; J1956; A9270-GY

== ENCOUNTER 2023-07-30 10:08 | Emergency (ER) | payer MEDICARE, BC ==
[2023-07-30 11:11] VITALS: TEMP 98
--- NOTE | 2023-07-30 11:30 | XRAY ---
Indication: Status post fall. Multiple contiguous axial images obtained through the head without contrast. Comparison: February 05, 2019 Again age-appropriate global atrophy. No acute intracranial hemorrhage, abnormal extra-axial fluid collection, or mass effect. New small right occipital scalp hematoma near the vertex. Bony calvarium intact. Visualized paranasal sinuses and mastoid air cells are clear. Impression: New right occipital scalp hematoma. No underlying acute fracture or acute intracranial abnormalities.
--- NOTE | 2023-07-30 11:34 | XRAY ---
Indication: Head injury following fall. Multiple contiguous axial images obtained through the cervical spine. Sagittal and coronal reformatted images obtained. Comparison: None Osseous structures demineralized. Axial images negative for acute fracture, suspicious bony lesions, or spinal canal stenosis. Minimal/mild C3-C7 degenerative endplate spurring and mild/moderate multilevel bilateral degenerative facet hypertrophy. Additional mild atlantoaxial degenerative changes. Sagittal and coronal reformatted images demonstrates lordotic straightening, positional versus paraspinal spasm. Minimal 2 mm degenerative anterior spondylolisthesis C2 on C3 on C4. C4-C7 degenerative disc space loss. No acute compression fracture or jumped facet. Normal appearing craniocervical junction. Visualized noncontrasted soft tissues demonstrates moderate bilateral carotid calcifications. Impression: 1. Cervical lordotic straightening, positional versus paraspinal spasm. Negative acute fracture. 2. Chronic findings including osteopenia, multilevel degenerative spondylosis, minimal grade 1 listhesis C2 on C3 on C4, and bilateral carotid calcifications.
[2023-07-30] MEDS ORDERED: XYLOCAINE 1%/Epi 1:100000 MDV 20 ML ONE (11:41)
--- NOTE | 2023-07-30 11:57 | ERPHSYRPT ---
- History of Present Illness Time Seen by Provider: 07/30/23 10:45 Source: patient, family Exam Limitations: no limitations Patient Subjective Stated Complaint: Patient states she fell trying to get into the car after leaving Dr. Delgado's office just prior to coming into the ER. Denies N/V or loss of conciousness. Patient did hit her head on the ground. She is here for assessment of head. Triage Nursing Assessment: Patient brought back to ER in a W/C. She is alert and oriented. Blood noted in hair to back of head; area cleansed with sterile water and hibiclens. A "V" shaped laceration noted measuring 1.6cm on the longest side and 0.4cm on the shorter side. Physician History: Patient is an 83-year-old white female admitted in the hospital building being evaluated by Dr. Delgado when walking to the parking lot she fell hitting the back of her head. She is on blood thinners consisting of aspirin and Plavix. She denies any loss of consciousness. She denies any pain other than the back of her head. Occurred: just prior to arrival Severity: mild Head Injury Location: occipital Method of Injury: fell Loss of Consciousness: no loss of consciousness Allergies/Adverse Reactions: No Known Drug Allergies Allergy (Verified 07/30/23 10:24) Home Medications: Aspirin [Blanca Chewable] 81 mg PO DAILY 07/07/15 [History] Cyanocobalamin 1000 Mcg/ml [Cyanocobalamin B-12 1000 MCG/ML] 1,000 mcg IJ UD 07/07/15 [History] Levothyroxine Sodium [Synthroid] 125 mcg PO DAILY 07/07/15 [History] Losartan Potassium 50 mg [Cozaar 50 MG] 50 mg PO DAILY 07/07/15 [History] Simvastatin 40 mg [Zocor 40 mg] 40 mg PO HS 07/07/15 [History] Amlodipine Besylate 5 mg [Norvasc 5 mg] 5 mg PO DAILY 10/28/22 [History] Cholecalciferol (Vitamin D3) [Vitamin D] 1.25 mg PO WEEKLY 10/28/22 [History] Cholestyramine [Cholestyramine Resin] 25 mg PO DAILY 10/28/22 [History] Fish Oil/Dha/Epa [Fish Oil 1,200 mg Fish Oil] 1,200 mg PO DAILY 10/28/22 [History] Ondansetron [Ondansetron Odt ] 1 tab PO Q8H PRN PRN 10/28/22 [History] Potassium Chloride [Klor-Con 10] 10 meq PO DAILY 10/28/22 [History] Sitagliptin Phos/Metformin HCl [Janumet Xr 100-1,000 mg Tablet] 50 - 1,000 mg PO DAILY 10/28/22 [History] Lipase/Protease/Amylase [Sola Hopson 36,000 Unit Capsule] 36,000 unit PO TIDWM 10/29/22 [History] Hx Tetanus, Diphtheria Vaccination/Date Given: Yes Hx Influenza Vaccination/Date Given: Yes Hx Pneumococcal Vaccination/Date Given: Yes Immunizations Up to Date: Yes Travel Risk - International Travel Have you traveled outside of the country in past 3 weeks: No - Coronavirus Screening Are you exhibiting any of the following symptoms?: No Close contact with a COVID-19 positive Pt in past 14-21 Days: No - Vaccine Status Have you recieved a Covid-19 vaccination: Yes 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[employer] - Vaccination Dates Date of 2cond Vaccination (if applicable): unknown - Review of Systems Constitutional: No Fever, No Chills Eyes: No Symptoms Ears, Nose, & Throat: No Symptoms Respiratory: No Cough, No Dyspnea Cardiac: No Chest Pain, No Edema, No Syncope Abdominal/Gastrointestinal: No Abdominal Pain, No Nausea, No Vomiting, No Diarrhea Genitourinary Symptoms: No Dysuria Musculoskeletal: No Back Pain, No Neck Pain Skin: No Rash Neurological: No Dizziness, No Focal Weakness, No Sensory Changes Psychological: No Symptoms Endocrine: No Symptoms All Other Systems: Reviewed and Negative - Past Medical History Pertinent Past Medical History: Yes Neurological History: No Pertinent History ENT History: Cataracts Cardiac History: Congestive Heart Failure, Hypertension Respiratory History: Pneumonia Endocrine Medical History: Diabetes Type II, Hypothyroidism Musculoskeletal History: Osteoarthritis GI Medical History: GERD, Gallbladder Disease, Other History: No Pertinent History Psycho-Social History: No Pertinent History Female Reproductive Disorders: No Pertinent History Other Medical History: DECREASED KIDNEY FUNCTION. OPEN HEART SURGERY X3 CABG - Past Surgical History Past Surgical History: Yes Neuro Surgical History: No Pertinent History Cardiac: CABG Respiratory: Chest Surgery Gastrointestinal: Appendectomy, Cholecystectomy Genitourinary: No Pertinent History Musculoskeletal: No Pertinent History Female Surgical History: Lumpectomy, Tubal Ligation Other Surgical History: T&A, lumpectomy right breast was benign, sinus surgery, lumpectomy at neck/shoulder area - Social History Smoking Status: Never smoker Exposure to second hand smoke: No Drug Use: none Patient Lives Alone: No - Nursing Vital Signs Nursing Vital Signs: Initial Vital Signs Temperature 98 F 07/30/23 10:30 Pulse Rate 80 07/30/23 10:30 Respiratory Rate 18 07/30/23 10:30 Blood Pressure 198/52 07/30/23 10:30 O2 Sat by Pulse Oximetry 98 07/30/23 10:30 Pain Scale Pain Intensity 7 - [place] Coma Score Best Eye Response ([place]): (4) open spontaneously Best Verbal Response ([place]): (5) oriented Best Motor Response ([place]): (6) obeys commands [place] Total: 15 - Physical Exam General Appearance: no apparent distress, alert Head Injury: active bleeding, lacerations Eye Exam: bilateral eye: PERRL, EOMI ENT Exam: airway nml Neck Exam: supple, trachea midline Cardiovascular/Respiratory Exam: chest non-tender, normal breath sounds, regular rate/rhythm Gastrointestinal/Abdominal Exam: soft, non tender, no distention Back Exam: normal inspection, No vertebral tenderness Extremity Exam: non-tender, normal range of motion, normal inspection Mental Status Exam: alert, oriented x 3, 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: normal hearing, normal speech, PERRL Coordination/Gait Exam: normal gait Motor/Sensory Exam: no motor deficit, no sensory deficit, CN II-XII intact Skin Exam: normal color, warm, dry, No rash SpO2 Interpretation: normal SpO2: 98 O2 Delivery: Room Air Procedures - Laceration/Wound Repair Occipital Time of Procedure: 11:56 Wound Location: head (Occipital) Wound Length (cm): 2.5 Wound's Depth, Shape: superficial, irregular Wound Explored: clean Irrigated: Yes Hibiclens Prep: Yes Anesthesia: 1% lidocaine w/ Epi Volume Anesthetic (ccs): 3 Number of Sutures: 8 Layer Closure?: No Sterile Dressing Applied?: Yes Splint Applied?: Yes Sling Applied?: No Posterior Occipital Time of Procedure: 10:00 Wound Location: head Wound Length (cm): 2.5 Wound's Depth, Shape: irregular Wound Explored: contaminated Ordered Tests: Active Orders 24 hr Category Date Time Status CERVICAL SPINE WO CONTRAST [CT] Stat Exams 07/30/23 10:49 Completed HEAD WITHOUT CONTRAST [CT] Stat Exams 07/30/23 10:49 Completed Medication Summary Discontinued Medications Generic Name Dose Route Start Last Admin Trade Name Freq PRN Reason Stop Dose Admin Lidocaine/Epinephrine Confirm 07/30/23 11:41 Lidocaine Hcl/Epinephrine 1% 20 Ml Administered 07/30/23 11:42 Dose 3 ml .ROUTE .[facility] - Departure Departure Disposition: Home Clinical Impression: Scalp laceration, Fall Condition: Stable Critical Care Time: No Referrals: REHANA URBANO MD [Primary Care Provider] - Follow up/PCP as directed Instructions: Head Injury in Adults (DC), Wound Care (DC)
[2023-07-30 13:01] VITALS: BP 158/78; PULSE 70; RESP 16; O2SAT 96
== END 2023-07-30 13:02 | disposition home or self-care (01) ==
LOC: ED 10:08
DX: S01.01XA Laceration without foreign body of scalp, initial encounter (principal); W18.30XA Fall on same level, unspecified, initial encounter; Y92.481 Parking lot as the place of occurrence of the external cause; R51.9 Headache, unspecified; I11.0 Hypertensive heart disease with heart failure; I50.9 Heart failure, unspecified; E11.9 Type 2 diabetes mellitus without complications; Z79.02 Long term (current) use of antithrombotics/antiplatelets; Z79.899 Other long term (current) drug therapy
CPT/HCPCS: 12001; 70450; 72125; 99283

== ENCOUNTER 2023-11-22 14:04 | Emergency (ER) | payer MEDICARE, BC ==
[2023-11-22] MEDS ORDERED: Sodium Chloride 0.9% 1000 ML 1,000 ML ONE (14:13)
[2023-11-22] MEDS ORDERED: Zofran 4 MG/2 ML VIAL ONE (14:13)
[2023-11-22] MEDS ORDERED: SUBLIMAZE 100 MCG/2 ML ONE (14:13)
[2023-11-22] MEDS: Sodium Chloride 0.9% 1000 ML 1,000 ML IV SCH (14:16)
[2023-11-22] MEDS: SUBLIMAZE 100 MCG/2 ML IV ONE (14:17)
[2023-11-22] MEDS: Zofran 4 MG/2 ML VIAL IV ONE (14:18)
[2023-11-22 14:31] LABS: BASOPHIL % 0.5 % (0.1-1.2); Basophil (Absolute #) 0.02 x10^3/uL (0.01-0.08); Eosinophil % 1.4 % (0.7-5.8); Eosinophil (Absolute #) 0.05 x10^3/uL (0.04-0.36); Hematocrit 28.9 % (34.1-44.9); Hemoglobin 9.8 g/dL (11.2-15.7); IMMATURE GRAN # 0.01 x10^3u/L (0.001-0.031); IMMATURE GRAN % 0.3 % (0.001-0.429); Lymphocyte (Absolute #) 0.93 x10^3/uL (1.18-3.74); Lymphocytes % 25.5 % (19.3-51.7); Mean Corpuscular Hemoglobin 29.2 pg (25.6-32.2); Mean Corpuscular Hgb Concent. 33.9 g/dL (32.2-35.5); Mean Platelet Volume 9.9 fL (9.4-12.3); Monocyte (Absolute #) 0.33 x10^3/uL (0.24-0.86); Monocytes % 9.1 % (4.7-12.5); Neutrophil % 63.2 % (34.0-71.1); Platelet Count 196 x10^3/uL (182-369); Red Blood Count 3.36 x10^6/uL (3.93-5.22); Red Cell Distribution Width 12.8 % (11.7-14.4); White Blood Count 3.6 x10^3/uL (3.98-10.04)
[2023-11-22 14:42] VITALS: TEMP 98
[2023-11-22 14:52] LABS: ALBUMIN 2.8 g/dL (3.5-5.0); ANION GAP 7.9 MEQ/L (5-15); BILIRUBIN,TOTAL 0.4 mg/dL (0.2-1.3); Calcium 8.8 mg/dL (8.4-10.2); Creatinine 1 0.64 mg/dL (0.52-1.04); EST GLOMERULAR FILTRATION RATE 88.7 ML/MIN; Potassium 3.4 mmol/L (3.5-5.1); Total Protein 5.7 g/dL (6.3-8.2)
[2023-11-22 15:21] LABS: Appearance Clear (Clear); Bacteria Few /HPF (None Seen); Bilirubin Negative (Negative); Blood Negative (Negative); Epithelial Cells None Seen /HPF (None Seen); Glucose, Urine 500 mg/dL (Negative); Hyaline Casts NONE SEEN /LPF (0-2); Ketones Negative (Negative); Leukocyte Esterase Trace (Negative); Nitrite Negative (Negative); Ph 6.5 (4.6-8.0); Protein,Urine Dip Negative (Negative); Urobilinogen 0.2 mg/dL (0.2); WBC 0-2 /HPF (0-5)
[2023-11-22 15:22] LABS: ADD URINE CULTURE? NO (NO)
[2023-11-22] MEDS ORDERED: APRESOLINE 20 MG/ML INJ ONE ×2 (15:29→17:02)
[2023-11-22] MEDS: APRESOLINE 20 MG/ML INJ IV ONE ×2 (15:30→17:03)
[2023-11-22] MEDS ORDERED: MORPHINE SULFATE 4 MG INJ ONE (15:40)
[2023-11-22] MEDS: MORPHINE SULFATE 4 MG INJ IV ONE (15:41)
--- NOTE | 2023-11-22 16:00 | XRAY ---
CLINICAL HISTORY: fall/frontal hematoma COMPARISON: None. TECHNIQUE: An axial non-contrast CT scan of the brain was performed from the skull base to the high parietal region. Coronal and Sagittal reformat were available. One of the following dose-reduction techniques was utilized for this exam. Automated exposure control, adjustment of the mA and/or kV according to patient size, and use of iterative reconstruction. FINDINGS: Bilateral fractures of the nasal bones, with concomitant fluid areas in the ethmoid air cells and right maxillary sinus, with air-fluid level in the latter. There is a prominent 4 x 2 cm right frontal subgaleal hematoma. Swelling soft tissues of the right orbital area. No evidence of acute cortical infarction, intracranial hemorrhage, mass, or mass effect. There are periventricular areas of low attenuation throughout the deep white matter. Age-related central and cortical involutional brain changes are noted. Day-white matter differentiation is maintained. No abnormal extra-axial fluid collections are present. The posterior fossa is unremarkable. The skull base and calvarium are intact. The included portions of the paranasal sinuses and mastoid air cells are clear. The atherosclerotic calcific disease is seen in the vertebral and internal carotid arteries. IMPRESSION: 1. Fracture of the nasal bones bilaterally. Further evaluation with maxillofacial CT is recommended for better assessment. 2. Right frontal subgaleal hematoma and right orbital swollen soft tissues. 3. No acute intracranial abnormality is present. 4. Volume loss and chronic microvascular ischemic changes of the periventricular white matter are noted. [facility] ER was called at [phone] at 2:54 PM RN MEDICARE, 11/22/2023 and nurse Shani was informed about medical findings. Electronically Signed by: Krzysztof Chavez MD. (11/22/2023 15:56:14 EDT)
--- NOTE | 2023-11-22 16:15 | XRAY ---
CLINICAL HISTORY: fall/frontal hematoma COMPARISON: None. TECHNIQUE: Thin axial CT of the cervical spine was performed with sagittal and coronal reconstructions without contrast. One of the following dose-reduction techniques was utilized for this exam. Automated exposure control, adjustment of the mA and/or kV according to patient size, and use of iterative reconstruction. FINDINGS: Straightening of cervical spine noted possibly positional vs. muscle spasm. Normal vertebral body heights and alignment. Degenerative changes in the visualized spine, with marginal osteophytes at lower cervical levels. Uncovertebral and facet joint arthropathies. Intervertebral disc spaces are narrowed. No lytic or sclerotic bone lesion. No definite fractures could be detected. The craniovertebral measures are unremarkable. Level by Level analysis: C2-C3: diffuse disc bulge. No central canal or neuroforaminal stenosis. C3-C4: diffuse disc bulge. No central canal or neuroforaminal stenosis. C4-C5: diffuse disc bulge. No central canal or neuroforaminal stenosis. C5-C6: diffuse disc bulge.No central canal or neuroforaminal stenosis. C6-C7: diffuse disc bulge.No central canal or neuroforaminal stenosis. IMPRESSION: 1. Moderate cervical spondylotic changes with osteophytes. 2. Multilevel disc bulging. 3. No acute bone abnormality is noted. Electronically Signed by: Krzysztof Chavez MD. (11/22/2023 16:10:47 EDT)
--- NOTE | 2023-11-22 16:26 | XRAY ---
CLINICAL HISTORY: fall COMPARISON: None. TECHNIQUE: X-ray pelvis AP, left hip AP, and lateral views. FINDINGS: There are signs of chronic osteoarthritis of the left hip joint, appearing with severe joint space narrwoing, with irregularity and sclerosis of the articular surfaces, osteophytes were also noted. Mild changes were noted at the right hip. Bilateral sacroiliitis. A radiological examination of the hip demonstrates no lytic or sclerotic lesion. There is no evidence of acute fracture or dislocation. The cortical margins of the osseous structures are within normal limits. There are no intra-articular or periarticular calcifications. IMPRESSION: 1. Chronic moderate osteoarthritis of bilateral hip joints more on the left side. 2. Bilateral degenerative sacroiliitis. DISCLAIMER:A subtle bone abnormality or fracture may not be readily apparent on x-rays, thus clinical correlation and further imaging including follow-up CT, MRI, or follow-up x-rays are advised as needed. Electronically Signed by: Krzysztof Chavez MD. (11/22/2023 16:22:46 EDT)
--- NOTE | 2023-11-22 16:35 | XRAY ---
CLINICAL HISTORY: fall COMPARISON: None. TECHNIQUE: X-ray left hand AP, oblique, and lateral views. FINDINGS: There is a cortical step in the distal radius with a lucent line in its medial aspect highly concerning for an intra-articular fracture. Bone density is reduced. Advanced degenerative changes are seen in the first carpometacarpal, metacarpophalangeal, and interphalangeal joints. Reduced joint spaced with subchondral sclerosis, and osteophytes in the involved joints are noted. Some degree of articular collapse of the 1st metacarpal head is noted with a subtle lucent line and surrounding soft tissue edema. The 2nd, 3rd, and 4th proximal phalangeal head also appears deformed with multilevel subluxations. Some soft tissue edema along the radial aspect of the wrist. IMPRESSION: 1. A subtle lucent line with a cortical step in the distal lateral radius is highly concerning for a fracture. 2. Some degree of articular collapse and a lucent line is seen in the head of the first metacarpal with surrounding soft tissue edema raising concern for a fracture, requiring clinical correlation with point tenderness and follow-up. 3. Advanced osteoarthritis of first carpometacarpal and interphalangeal joints with subluxations. Disclaimer: A subtle bone abnormality or fracture may not be readily apparent on x-rays, thus clinical correlation and further imaging including follow-up CT, MRI or follow up x-rays are advised as needed. 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 Electronically Signed by: Krzysztof Chavez MD. (11/22/2023 16:30:39 EDT)
--- NOTE | 2023-11-22 16:37 | XRAY ---
CLINICAL HISTORY: fall/frontal hematoma COMPARISON: None. TECHNIQUE: Non-Contrast CT scan of the maxillofacial was performed with sagittal and coronal reconstructions. "One of the following dose reduction techniques were utilized for this exam: Automated exposure control, adjustment of the mA and/or kV according to patient size, and use of iterative reconstruction." FINDINGS: Evidence of fracture of the inferior wall of the orbit with the mild protrusion of orbital fat in the right maxillary sinus as well as opacification of the right maxillary and bilateral ethmoid sinuses. Findings are likely suggestive of Tear drop fracture of the inferior orbital wall. Evidence of soft tissue hematoma in right frontal bone with underlying small fracture of the frontal bone resulting in slight elevation. Comminuted fracture of nasal bone noted on both sides. Temporomandibular joint: No fracture/dislocation or subluxation is identified. Nasal Septum: Deviation of the nasal septum towards the left. Turbinates: Unremarkable. No evidence of marques bullosa or paradoxical curvature. Uncinate Processes: No deviation or bulla formation. O-M UNIT: Infundibula and hiatus semilunaris are widely patent. SINUSES: The frontal, sphenoid, the left maxillary sinuses are well pneumatized. Fovea Ethmoidalis: Normal position. Fovea ethmoidalis and cribriform plate are not low-lying. Nasopharynx: Unremarkable IMPRESSION: 1. Fracture of the inferior wall of the orbit with the mild protrusion of orbital fat in the right maxillary sinus as well as opacification of the right maxillary and bilateral ethmoid sinuses. Findings are likely 2. Suggestive of Tear drop fracture of the inferior orbital wall. 3. Comminuted fracture of nasal bone noted on both sides. 4. Evidence of soft tissue hematoma in right frontal bone with underlying small fracture of the frontal bone resulting in slight elevation. 5. Deviation of the nasal septum towards the left. 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 Electronically Signed by: Krzysztof Chavez MD. (11/22/2023 16:33:39 EDT)
--- NOTE | 2023-11-22 16:45 | XRAY ---
CLINICAL HISTORY: fall COMPARISON: 12/26/2022. TECHNIQUE: X-ray chest frontal, AP view. FINDINGS: Evidence of sternotomy. Air space shadowing with prominent broncho vascular marking was noted in the left para cardiac region, not changed from the last scan. Mild prominence of broncho vascular markings was also noted in the bilateral lower zone. Cardiomegaly with widening of the mediastinum. It is unfolding of the arch of the aorta seen. Both costophrenic angles appear free. Crowded overlapped left lower ribs, with possible left 9th rib fracture. IMPRESSION: 1. Moderate to severe cardiomegaly, perihilar air space opacification, and signs of pulmonary congestion. Cardiomegally appears worse and left perihilar appearance shows more opacification. Suggest Chest CT to evaluate the heart and lungs. 2. Suspicious of left 9th rib fracture for clinical correlation with point of tenderness and further rib imaging assessment if clinically indicated. Electronically Signed by: Krzysztof Chavez MD. (11/22/2023 16:40:16 EDT)
--- NOTE | 2023-11-22 16:57 | ERPHSYRPT ---
- History of Present Illness Time Seen by Provider: 11/22/23 14:06 Source: patient, family, EMS Exam Limitations: no limitations Patient Subjective Stated Complaint: Patient tripped and fell at a home just prior to coming to the ER today. Patient is c/o right eye, right knee, and left thumb pain following the fall. Triage Nursing Assessment: Patient arrived to ER by ambulance wearing a c- collar. Patient with bruising around right eye with a hematoma present just above right eye. Swelling noted across bridge of nose; no discoloration noted at this time. Dried blood noted inside both nares. She is alert and oriented. Denies loss of conciousness. Purple bruising also noted to right wrist, right knee (and swelling), left thumb, left middle finger. Physician History: 83-year-old female with history of hypertension, hyperlipidemia, congestive heart failure tripped over someone else you at a home from a standing position and hit her right knee, left hand and face against the carpeted floor. No loss of consciousness. Denies any focal numbness tingling or weakness. Patient has a hematoma right supraorbital area and abrasion with swelling of the bridge of nose and left hand/thumb swelling. Patient reports moderate to severe pain in the hand and right knee, minimal discomfort in the left hip area. Denies any chest pain palpitations or shortness of breath before or after the fall. No abdominal pain nausea or vomiting reported. Allergies/Adverse Reactions: No Known Drug Allergies Allergy (Verified 11/22/23 14:07) Home Medications: Aspirin [Blanca Chewable] 81 mg PO DAILY 07/07/15 [History] Cyanocobalamin 1000 Mcg/ml [Cyanocobalamin B-12 1000 MCG/ML] 1,000 mcg IJ UD 07/07/15 [History] Levothyroxine Sodium [Synthroid] 125 mcg PO DAILY 07/07/15 [History] Losartan Potassium 50 mg [Cozaar 50 MG] 50 mg PO DAILY 07/07/15 [History] Simvastatin 40 mg [Zocor 40 mg] 40 mg PO HS 07/07/15 [History] Amlodipine Besylate 5 mg [Norvasc 5 mg] 5 mg PO DAILY 10/28/22 [History] Cholecalciferol (Vitamin D3) [Vitamin D] 1.25 mg PO WEEKLY 10/28/22 [History] Cholestyramine [Cholestyramine Resin] 25 mg PO DAILY 10/28/22 [History] Fish Oil/Dha/Epa [Fish Oil 1,200 mg Fish Oil] 1,200 mg PO DAILY 10/28/22 [History] Ondansetron [Ondansetron Odt ] 1 tab PO Q8H PRN PRN 10/28/22 [History] Potassium Chloride [Klor-Con 10] 10 meq PO DAILY 10/28/22 [History] Sitagliptin Phos/Metformin HCl [Janumet Xr 100-1,000 mg Tablet] 50 - 1,000 mg PO DAILY 10/28/22 [History] Lipase/Protease/Amylase [Sola Hopson 36,000 Unit Capsule] 36,000 unit PO TIDWM 10/29/22 [History] Hx Tetanus, Diphtheria Vaccination/Date Given: Yes Hx Influenza Vaccination/Date Given: Yes Hx Pneumococcal Vaccination/Date Given: Yes Immunizations Up to Date: Yes Travel Risk - International Travel Have you traveled outside of the country in past 3 weeks: No - Emerging Infectious Disease Are you exhibiting symptoms associated with any current EIDs: No - Review of Systems Constitutional: No Symptoms Eyes: Eye Redness Ears, Nose, & Throat: No Symptoms Respiratory: No Symptoms Cardiac: No Symptoms Abdominal/Gastrointestinal: No Symptoms Genitourinary Symptoms: No Symptoms Musculoskeletal: Fall, Injury, Joint Redness, Joint Pain, Joint Swelling Skin: Skin Lesions Neurological: Headache Endocrine: No Symptoms Hematologic/Lymphatic: No Symptoms Immunological/Allergic: No Symptoms - Past Medical History Pertinent Past Medical History: Yes Neurological History: No Pertinent History ENT History: Cataracts Cardiac History: Congestive Heart Failure, Hypertension Respiratory History: Pneumonia Endocrine Medical History: Diabetes Type II, Hypothyroidism Musculoskeletal History: Osteoarthritis GI Medical History: GERD, Gallbladder Disease, Other History: Other Psycho-Social History: No Pertinent History Female Reproductive Disorders: No Pertinent History Other Medical History: decreased kidney function, low sodium, 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 - Past Surgical History Past Surgical History: Yes Neuro Surgical History: No Pertinent History Cardiac: CABG Respiratory: Chest Surgery Gastrointestinal: Appendectomy, Cholecystectomy Genitourinary: No Pertinent History Musculoskeletal: No Pertinent History Female Surgical History: Lumpectomy, Tubal Ligation Other Surgical History: lumpectomy right breast was benign, sinus surgery, lumpectomy at neck/shoulder area - Social History Smoking Status: Never smoker Exposure to second hand smoke: No Drug Use: none Patient Lives Alone: No - Social Determinants of Health Will the patient participate in the screening: Yes Do you worry about a steady place to live?: No Do you have any problems with any of the following?: No known problems In the past 12 months,have you had to go without utilities?: No Transportation Issues: No Has anyone in your support network made you feel unsafe?: No Have you or anyone in your house had to go without enough: No - Nursing Vital Signs Nursing Vital Signs: Initial Vital Signs Temperature 98 F 11/22/23 14:05 Pulse Rate 60 11/22/23 14:05 Respiratory Rate 17 11/22/23 14:05 Blood Pressure 200/80 11/22/23 14:05 O2 Sat by Pulse Oximetry 97 11/22/23 14:05 Pain Scale Pain Intensity 3 - Keily Coma Score Best Eye Response (Keily): (4) open spontaneously Best Verbal Response (Keily): (5) oriented Best Motor Response (Keily): (6) obeys commands [place] Total: 15 - Physical Exam General Appearance: no apparent distress Head Injury: contusions, ecchymosis, raccoon eyes, swelling, tenderness Eye Exam: PERRL/EOMI, other (Right supraorbital hematoma) ENT Exam: airway nml, No evidence of ENT injury, No dental injury Neck Exam: supple, trachea midline, normal alignment, c-collar in place Respiratory/Chest Exam: respiratory distress, decreased breath sounds, No chest tenderness Cardiovascular Exam: normal heart sounds, regular rate/rhythm Gastrointestinal Exam: soft, normal bowel sounds, No tenderness Back Exam: normal inspection Extremity Exam: limited range of motion (Left thumb swelling at the metacarpophalangeal joint area. Bruising thenar eminence. Distal neurovascular intact.), swelling, other (Right knee diffuse swelling with hematoma. Tenderness all over.) Neurologic Exam: alert, oriented x 3, cooperative, inspector metal can II-XII nml as tested, sensation nml, No motor deficits Skin Exam: normal color SpO2 Interpretation: normal SpO2: 98 O2 Delivery: Room Air Ordered Tests: Active Orders 24 hr Category Date Time Status IV Insertion STAT Care 11/22/23 14:08 Active NPO (ED) STAT Care 11/22/23 14:08 Active CERVICAL SPINE WO CONTRAST [CT] Stat Exams 11/22/23 14:07 Completed CHEST 1 VIEW (PORTABLE) Stat Exams 11/22/23 14:08 Completed FACIAL BONES WO CONTRAST [CT] Stat Exams 11/22/23 14:06 Completed HAND (MINIMUM 3 VIEWS) Stat Exams 11/22/23 14:07 Completed HEAD WITHOUT CONTRAST [CT] Stat Exams 11/22/23 14:06 Completed HIP UNI (2V) INCL PEL IF DONE Stat Exams 11/22/23 14:07 Completed KNEE (3 VIEWS) Stat Exams 11/22/23 14:07 Completed CBC W DIFF Stat Lab 11/22/23 14:25 Completed CMP Stat Lab 11/22/23 14:25 Completed UA W/RFX UR CULTURE Stat Lab 11/22/23 14:35 Completed Medication Summary Generic Name Dose Route Start Last Admin Trade Name Freq PRN Reason Stop Dose Admin Sodium Chloride 1,000 mls @ 100 mls/hr 11/22/23 14:15 11/22/23 14:16 Sodium Chloride 0.9% 1000 Ml IV 12/22/23 14:14 100 mls/hr .Q10H ANGEL Administration Discontinued Medications Generic Name Dose Route Start Last Admin Trade Name Freq PRN Reason Stop Dose Admin Fentanyl Citrate 50 mcg 11/22/23 14:08 11/22/23 14:17 Fentanyl Citrate 100 Mcg/2 Ml* Vial IV 11/22/23 14:09 50 mcg STAT ONE Administration Fentanyl Citrate Confirm 11/22/23 14:13 Fentanyl Citrate 100 Mcg/2 Ml* Vial Administered 11/22/23 14:14 Dose 100 mcg .ROUTE .STK-MED ONE Hydralazine HCl 10 mg 11/22/23 15:28 11/22/23 15:30 Hydralazine Hcl 20 Mg/Ml Vial IV 11/22/23 15:29 10 mg STAT ONE Administration Hydralazine HCl Confirm 11/22/23 15:29 Hydralazine Hcl 20 Mg/Ml Vial Administered 11/22/23 15:30 Dose 20 mg .ROUTE .STK-MED ONE Hydralazine HCl 10 mg 11/22/23 17:00 11/22/23 17:03 Hydralazine Hcl 20 Mg/Ml Vial IV 11/22/23 17:01 10 mg STAT ONE Administration Morphine Sulfate 4 mg 11/22/23 15:35 11/22/23 15:41 Morphine Sulfate 4 Mg/Ml Injection IV 11/22/23 15:36 4 mg STAT ONE Administration Morphine Sulfate Confirm 11/22/23 15:40 Morphine Sulfate 4 Mg/Ml Injection Administered 11/22/23 15:41 Dose 4 mg .ROUTE .STK-MED ONE Ondansetron HCl 4 mg 11/22/23 14:08 11/22/23 14:18 Ondansetron Hcl 4 Mg/2 Ml Vial IV 11/22/23 14:09 4 mg STAT ONE Administration Ondansetron HCl Confirm 11/22/23 14:13 Ondansetron Hcl 4 Mg/2 Ml Vial Administered 11/22/23 14:14 Dose 4 mg .ROUTE .STK-MED ONE Lab/Rad Data: Laboratory Result Diagrams 11/22/23 14:25 11/22/23 14:25 Laboratory Results 11/22/23 11/22/23 11/22/23 Range/Units 14:35 14:25 14:25 WBC 3.6 L (3.98-10.04) x10^3/uL RBC 3.36 L (3.93-5.22) x10^6/uL Hgb 9.8 L (11.2-15.7) g/dL Hct 28.9 L (34.1-44.9) % MCV 86.0 (79.4-94.8) fL MCH 29.2 (25.6-32.2) pg MCHC 33.9 (32.2-35.5) g/dL RDW 12.8 (11.7-14.4) % Plt Count 196 (182-369) x10^3/uL MPV 9.9 (9.4-12.3) fL Gran % 63.2 (34.0-71.1) % Immature Gran % (Auto) 0.3 (0.001-0.429) % Nucleat RBC Rel Count 0.0 (0.00-0.2) % Eos # (Auto) 0.05 (0.04-0.36) x10^3/uL Immature Gran # (Auto) 0.01 (0.001-0.031) x10^3u/L Absolute Lymphs (auto) 0.93 L (1.18-3.74) x10^3/uL Absolute Monos (auto) 0.33 (0.24-0.86) x10^3/uL Absolute Nucleated RBC 0.00 (0.00-0.012) x10^3u/L Lymphocytes % 25.5 (19.3-51.7) % Monocytes % 9.1 (4.7-12.5) % Eosinophils % 1.4 (0.7-5.8) % Basophils % 0.5 (0.1-1.2) % Absolute Granulocytes 2.30 (1.56-6.13) x10^3/uL Basophils # 0.02 (0.01-0.08) x10^3/uL Sodium 130 L (135-145) mmol/L Potassium 3.4 L (3.5-5.1) mmol/L Chloride 102 (98-107) mmol/L Carbon Dioxide 24 (22-30) mmol/L Anion Gap 7.9 (5-15) MEQ/L BUN 11 (7-17) mg/dL Creatinine 0.64 (0.52-1.04) mg/dL Estimated GFR 88.7 ML/MIN Glucose 200 H (74-106) mg/dL Calcium 8.8 (8.4-10.2) mg/dL Total Bilirubin 0.40 (0.2-1.3) mg/dL AST 28 (14-36) U/L ALT 13 (0-35) U/L Alkaline Phosphatase 65 (38-126) U/L Serum Total Protein 5.7 L (6.3-8.2) g/dL Albumin 2.8 L (3.5-5.0) g/dL Urine Color Yellow (Yellow) Urine Appearance Clear (Clear) Urine pH 6.5 (4.6-8.0) Ur Specific [place] 1.010 (1.005-1.030) Urine Protein Negative (Negative) Urine Glucose (UA) 500 A (Negative) mg/dL Urine Ketones Negative (Negative) Urine Blood Negative (Negative) Urine Nitrite Negative (Negative) Urine Bilirubin Negative (Negative) Urine Urobilinogen 0.2 (0.2) mg/dL Ur Leukocyte Esterase Trace A (Negative) U Hyaline Cast (Auto) NONE SEEN (0-2) /LPF Urine Microscopic RBC 3-5 (0-5) /HPF Urine Microscopic WBC 0-2 (0-5) /HPF Ur Epithelial Cells None Seen (None Seen) /HPF Urine Bacteria Few A (None Seen) /HPF Urine Culture Reflexed NO (NO) - Progress Progress: improved, pain not gone completely, re-examined Progress Note: 11/22/23 17:08 83-year-old is evaluated in the ER for ground-level mechanical fall. Patient is in c-collar on presentation. She is given symptomatic treatment for pain. Patient blood pressure is in 200s, given hydralazine and it is in 170s/180s and repeated a dose of hydralazine as well. Patient CT head showed right frontal bone fracture with hematoma but no intracranial bleed. She also has right lower orbital floor teardrop fracture. Bilateral nasal bone comminuted fractures. X-ray of hand is positive for fracture/subluxation at the first digit. Chest x- ray negative. CT cervical spine is negative. Patient does not want to keep c- collar and is removed. She is able to move her neck in all direction without any limitations. X-rays of hip are negative for fractures dislocation but some arthritis. Normal white count, fairly unremarkable chemistries. With her multiple facial fractures including frontal skull fracture, [facility] is consulted and patient is excepted on behalf of Dr. Elise as a direct trauma consult. I have shared the results of workup with patient and family and plan of transfer which they understand and agree. Discussed with DrOctavio: Other (Dr. 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 Elise [facility] trauma) Reviewed:: Test results Agreed on:: Treatment plan Will see patient: in ED - Diagnostic Testing Diagnostic test were ordered, analyzed, and reviewed by me: Yes Radiological Interpretation: Interpreted by me, Reviewed by me, Teleradiologist Report - Risk of complications The pt has a mod risk of morbidity or mortality based on: Need for prescription drug management The pt has a high risk of morbidity or mortality based on: Need for major surgery in patient with known risk factors - Departure Departure Disposition: Transfer Clinical Impression: Frontal skull fracture, Orbital fracture, Nasal fracture, Thumb fracture, Radius fracture, Uncontrolled hypertension, Knee contusion Condition: Stable Critical Care Time: Yes Critical Care Time(excluding separately billable procedures): Critical 30-74 mins Referrals: REHANA URBANO MD [Primary Care Provider] - Follow up/PCP as directed
--- NOTE | 2023-11-22 16:57 | XRAY ---
CLINICAL HISTORY: fall COMPARISON: None. TECHNIQUE: X-ray of the right knee AP, oblique, and lateral views. FINDINGS: A radiological examination of the right knee demonstrates Total knee replacement with normal knee prosthesis. Prosthesis appears in good orientation with no evidence of any loosening, infection, or periprosthetic fracture. Diffuse osteopenia of bones is also noted. No focal bony lesion or bone erosion. No sclerotic or destructive bone changes. No definite fracture or dislocation. Mild joint effusion in the suprapatellar bursa. A small osteophyte is seen at the superior aspect of the patella. IMPRESSION: 1. Total knee replacement with normal prosthesis in good alignment and no evidence of loosening or periprosthetic fracture. 2. Diffuse osteopenia and a tiny osteophyte at the superior pole of the patella with mild joint effusions. 3. No acute osseous abnormality is seen. DISCLAIMER:A subtle bone abnormality or fracture may not be readily apparent on x-rays, thus clinical correlation and further imaging including follow up CT, MRI, or follow up x-rays are advised as needed. Electronically Signed by: Krzysztof Chavez MD. (11/22/2023 16:52:15 EDT)
[2023-11-22] MEDS ORDERED: Adacel Vial IM ONE (17:17)
[2023-11-22] MEDS: Adacel Vial IM ONE (17:19)
[2023-11-22 17:50] VITALS: BP 155/58; PULSE 72; RESP 15; O2SAT 99
== END 2023-11-22 17:50 | disposition short-term general hospital (02) ==
LOC: ED 14:04
DX: S02.0XXA Fracture of vault of skull, initial encounter for closed fracture (principal); S02.31XA Fracture of orbital floor, right side, initial encounter for closed fracture; S02.2XXA Fracture of nasal bones, initial encounter for closed fracture; S62.501A Fracture of unspecified phalanx of right thumb, initial encounter for closed fracture; S52.501A Unspecified fracture of the lower end of right radius, initial encounter for closed fracture; S62.201A Unspecified fracture of first metacarpal bone, right hand, initial encounter for closed fracture; S80.01XA Contusion of right knee, initial encounter; W01.0XXA Fall on same level from slipping, tripping and stumbling without subsequent striking against object, initial encounter; I11.0 Hypertensive heart disease with heart failure; I50.9 Heart failure, unspecified; E11.9 Type 2 diabetes mellitus without complications; Z79.84 Long term (current) use of oral hypoglycemic drugs; Z79.899 Other long term (current) drug therapy; S00.31XA Abrasion of nose, initial encounter
CPT/HCPCS: 36000; 36415; 70450; 70486; 71045; 72125; 73130; 73502; 73562; 80053; 81001; 85025; 90471; 90715; 96374; 96375; 96376; 99285; 99291; A4570; J0360; J2270; J2405; J3010

== ENCOUNTER 2023-12-21 15:14 | Emergency (ER) | payer MEDICARE, BC ==
[2023-12-21 15:47] VITALS: RESP 16; TEMP 99.3
--- NOTE | 2023-12-21 16:45 | ERPHSYRPT ---
- History of Present Illness Time Seen by Provider: 12/21/23 15:30 Source: patient, family Exam Limitations: no limitations Patient Subjective Stated Complaint: Pt reports she fell and landed face down on the floor at home. 11/22/23 she was in this ED with broken nose and possible skull fx and sent to [facility] as a result of a fall. Triage Nursing Assessment: Pt alert and oriented x3. Respirations easy/nonlabored. Skin w/p/d. Accompanied by daughter. Nose is swollen and discolored, active bleeding from left nostril. Right arm lower forarm has bruising and swelling with no obvious deformities. Physician History: The patient, with a history of recurrent falls, presents after a fall while walking their great-grandson. They fell 'right on my whole face' and also complain of wrist pain. They were recently evaluated at another hospital for a similar fall, where a nasal fracture was diagnosed and reset. The patient denies a history of skull fracture. They have persistent nasal bleeding, which is currently controlled by a clot. They also report difficulty breathing through their nose. The patient also complains of left hip pain, which was noticed when moving in bed. Occurred: just prior to arrival Reason for Fall: tripped, fell from standing pos Injuries/Pain Location: head, face, upper extremity (right wrist, forearm), lower extremity (left hip, right knee) Quality: sharpness, stabbing Severity of Pain-Max: moderate Severity of Pain-Current: moderate Modifying Factors: Improves With: immobilization. Worsens With: movement Associated Symptoms (Fall): extremity injury, headache, No abdominal pain, No ba ck pain, No confusion, No chest pain, No dizziness, No nausea, No neck pain, No shortness of breath, No slurred speech, No trouble walking, No vomiting, No vision changes Allergies/Adverse Reactions: nateglinide [From Starlix] Adverse Reaction (Verified 12/21/23 15:30) Home Medications: Aspirin [Blanca Chewable] 81 mg PO DAILY 07/07/15 [History] Cyanocobalamin 1000 Mcg/ml [Cyanocobalamin B-12 1000 MCG/ML] 1,000 mcg IJ UD 07/07/15 [History] Levothyroxine Sodium [Synthroid] 125 mcg PO DAILY 07/07/15 [History] Losartan Potassium 50 mg [Cozaar 50 MG] 50 mg PO DAILY 07/07/15 [History] Simvastatin 40 mg [Zocor 40 mg] 40 mg PO HS 07/07/15 [History] Cholecalciferol (Vitamin D3) [Vitamin D] 1.25 mg PO WEEKLY 10/28/22 [History] Fish Oil/Dha/Epa [Fish Oil 1,200 mg Fish Oil] 1,200 mg PO DAILY 10/28/22 [History] Ondansetron [Ondansetron Odt ] 1 tab PO Q8H PRN PRN 10/28/22 [History] Potassium Chloride [Klor-Con 10] 10 meq PO DAILY 10/28/22 [History] Sitagliptin Phos/Metformin HCl [Janumet Xr 100-1,000 mg Tablet] 50 - 1,000 mg PO DAILY 10/28/22 [History] Hx Tetanus, Diphtheria Vaccination/Date Given: Yes Hx Influenza Vaccination/Date Given: Yes Hx Pneumococcal Vaccination/Date Given: Yes Travel Risk - International Travel Have you traveled outside of the country in past 3 weeks: No - Emerging Infectious Disease Are you exhibiting symptoms associated with any current EIDs: No - Review of Systems All Other Systems: Reviewed and Negative - Past Medical History Pertinent Past Medical History: Yes Neurological History: No Pertinent History ENT History: Cataracts Cardiac History: Congestive Heart Failure, Hypertension Respiratory History: Pneumonia Endocrine Medical History: Diabetes Type II, Hypothyroidism Musculoskeletal History: Osteoarthritis GI Medical History: GERD, Gallbladder Disease, Other History: Other Psycho-Social History: No Pertinent History Female Reproductive Disorders: No Pertinent History Other Medical History: decreased kidney function, low sodium, 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 - Past Surgical History Past Surgical History: Yes Neuro Surgical History: No Pertinent History Cardiac: CABG Respiratory: Chest Surgery Gastrointestinal: Appendectomy, Cholecystectomy Genitourinary: No Pertinent History Musculoskeletal: No Pertinent History Female Surgical History: Lumpectomy, Tubal Ligation Other Surgical History: lumpectomy right breast was benign, sinus surgery, lumpectomy at neck/shoulder area - Social History Smoking Status: Never smoker Exposure to second hand smoke: No Drug Use: none Patient Lives Alone: No - Social Determinants of Health Will the patient participate in the screening: Declined to provide - Nursing Vital Signs Nursing Vital Signs: Initial Vital Signs Temperature 99.3 F 07/05/24 15:30 Pulse Rate 78 12/21/23 15:30 Respiratory Rate 16 12/21/23 15:30 Blood Pressure 221/76 12/21/23 15:30 O2 Sat by Pulse Oximetry 96 12/21/23 15:30 Pain Scale Pain Intensity 7 - Keily Coma Score Best Eye Response ([place]): (4) open spontaneously Best Verbal Response ([place]): (5) oriented Best Motor Response ([place]): (6) obeys commands [place] Total: 15 - Physical Exam General Appearance: no apparent distress Head Injury: contusions, tenderness, No lacerations Eye Exam: PERRL/EOMI, eyes nml inspection ENT Exam: airway nml, hearing grossly normal, clotted nasal blood, No dental injury, No clear fluid (ears), No clear fluid (nose), No midface instability, No oral injury Neck Exam: supple, trachea midline, full range of motion, normal alignment, normal inspection, No focal neuro deficit, No pain on movement of neck, No tenderness Respiratory/Chest Exam: normal breath sounds, No respiratory distress Cardiovascular Exam: normal heart sounds, regular rate/rhythm Gastrointestinal Exam: soft, No tenderness Extremity Exam: pain with movement (right wrist, left hip), tenderness, No lacerations Neurologic Exam: alert, oriented x 3, 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 II-XII 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 tested, normal mood/affect, nml cerebellar function, sensation nml, No facial droop, No slurred speech, No dysarthria Skin Exam: No laceration SpO2 Interpretation: normal SpO2: 99 O2 Delivery: Room Air - Course Nursing assessment & vital signs reviewed: Yes - Radiology Exams Left Hip X-ray Interpretation: Interpreted by me, No Fracture Pelvis X-ray Interpretation: Interpreted by me, No Fracture Right Wrist X-ray Interpretation: Interpreted by me, No Fracture Right Forearm X-ray Interpretation: Interpreted by me, No Fracture Right Knee X-ray Interpretation: Interpreted by me, No Fracture - CT Exams Head CT Interpretation: Tele-radiologist Report, Other (new right frontal SAH) Maxillofacial Bones CT Interpretation: Tele-radiologist Report, Fracture (comminuted nasal fracture) Ordered Tests: Active Orders 24 hr Category Date Time Status IV Insertion STAT Care 12/21/23 17:43 Completed IV Insertion-2nd Peripheral STAT Care 12/21/23 17:43 Completed FACIAL BONES WO CONTRAST [CT] Stat Exams 12/21/23 15:43 Completed FOREARM Stat Exams 12/21/23 15:43 Completed HEAD WITHOUT CONTRAST [CT] Stat Exams 12/21/23 15:43 Completed HIP UNI (2V) INCL PEL IF DONE Stat Exams 12/21/23 15:52 Completed KNEE (1 OR 2 VIEW) Stat Exams 12/21/23 16:08 Completed WRIST (MIN 3 VIEWS) Stat Exams 12/21/23 15:43 Completed CBC Stat Lab 12/21/23 17:30 Completed CMP Stat Lab 12/21/23 17:30 Completed PROTIME WITH INR Stat Lab 12/21/23 17:30 Completed PTT Stat Lab 12/21/23 17:30 Completed Medication Summary Discontinued Medications Generic Name Dose Route Start Last Admin Trade Name Freq PRN Reason Stop Dose Admin Enalapril Maleate 5 mg 12/21/23 16:47 12/21/23 17:07 Enalapril Maleate 10 Mg 10 Mg Tablet PO 12/21/23 16:48 5 mg STAT ONE Administration Enalaprilat 2.5 mg 12/21/23 16:24 12/21/23 16:47 Enalaprilat 2.5 Mg Injection IV 12/21/23 16:25 Not Given STAT ONE Enalaprilat 2.5 mg 12/21/23 18:30 12/21/23 18:31 Enalaprilat 2.5 Mg Injection IV 12/21/23 18:31 2.5 mg STAT ONE Administration Enalaprilat Confirm 12/21/23 18:31 Enalaprilat 2.5 Mg Injection Administered 12/21/23 18:32 Dose 2.5 mg IV .STK-MED ONE Lab/Rad Data: Laboratory Result Diagrams 12/21/23 17:30 12/21/23 17:30 Laboratory Results 12/21/23 12/21/23 12/21/23 Range/Units 17:30 17:30 17:30 WBC 7.6 (3.98-10.04) x10^3/uL RBC 3.78 L (3.93-5.22) x10^6/uL Hgb 11.2 (11.2-15.7) g/dL Hct 33.2 L (34.1-44.9) % MCV 87.8 (79.4-94.8) fL MCH 29.6 (25.6-32.2) pg MCHC 33.7 (32.2-35.5) g/dL RDW 13.4 (11.7-14.4) % Plt Count 276 (182-369) x10^3/uL MPV 9.8 (9.4-12.3) fL PT 10.8 (9.4-12.5) SECONDS INR 0.99 (0.8-3.0) APTT 27.3 (25.1-36.5) SECONDS Sodium 130 L (135-145) mmol/L Potassium 3.9 (3.5-5.1) mmol/L Chloride 99 (98-107) mmol/L Carbon Dioxide 27 (22-30) mmol/L Anion Gap 8.4 (5-15) MEQ/L BUN 13 (7-17) mg/dL Creatinine 0.64 (0.52-1.04) mg/dL Estimated GFR 88.7 ML/MIN Glucose 135 H (74-106) mg/dL Calcium 9.4 (8.4-10.2) mg/dL Total Bilirubin 0.70 (0.2-1.3) mg/dL AST 32 (14-36) U/L ALT 15 (0-35) U/L Alkaline Phosphatase 85 (38-126) U/L Serum Total Protein 6.7 (6.3-8.2) g/dL Albumin 3.5 (3.5-5.0) g/dL - Progress Progress: unchanged Progress Note: CT head shows new right frontal acute SAH. Dr. Celaya accepts for ER to ER transfer to [facility]. Counseled pt/family regarding: lab results, diagnosis, need for follow-up, rad results Medical Desision Making - Diagnostic Testing Diagnostic test were ordered, analyzed, and reviewed by me: Yes Radiological Interpretation: Interpreted by me, Reviewed by me, Teleradiologist Report - Risk of complications The pt has a high risk of morbidity or mortality based on: Decision regarding hospitilization or escalation of hosp level of care - Departure Departure Disposition: Transfer Clinical Impression: SAH (subarachnoid hemorrhage), Nasal fracture, Uncontrolled hypertension, Bleeding from the nose Condition: Stable Critical Care Time: No Referrals: REHANA URBANO MD [Primary Care Provider] - Follow up/PCP as directed Instructions: Preventing falls in adults
[2023-12-21] MEDS: ENALAPRILAT 2.5 MG INJECTION IV ONE ×2 (16:47→18:31)
[2023-12-21] MEDS: Vasotec 10 MG PO ONE (17:07)
--- NOTE | 2023-12-21 17:20 | XRAY ---
CLINICAL HISTORY: pain COMPARISON: 11/22/2023 TECHNIQUE: A non-contrast CT scan of the paranasal sinuses was performed, with sagittal and coronal multiplanar reconstruction. One of the following dose reduction techniques were utilized for this exam: Automated exposure control, adjustment of the mA and/or kV according to patient size, and use of iterative reconstruction. FINDINGS: There is a redemonstration of fracture of the inferior wall of the orbit with the mild protrusion of orbital fat in the right maxillary sinus signifying tear drop fracture of the right inferior orbital wall with interval clearance of right maxillary sinus and mild reduction in opacification of bilateral ethmoid sinuses. Comminuted fracture of the nasal bone and nasal septum with extensive soft tissue densities with air locules in the nasal cavity and nasopharynx and leftward deviated nasal septum. Interval resolution of frontal subgaleal hematoma. Temporomandibular joint: No fracture/dislocation or subluxation is identified. Turbinates: Unremarkable. No evidence of marques bullosa or paradoxical curvature. Uncinate Processes: No deviation or bulla formation. O-M UNIT: Infundibula and hiatus semilunaris are widely patented. SINUSES: The frontal, sphenoid, and maxillary sinuses are well pneumatized. Fovea Ethmoidalis: Normal position. Fovea ethmoidal and cribriform plates are not low-lying. Nasopharynx: Unremarkable. IMPRESSION: 1. Right orbital floor tear drop fracture with fat herniation in the right maxillary sinus is again seen. 2. Interval resolution of right maxillary sinus fluid and reduction in opacification of bilateral ethmoid sinuses. 3. Comminuted fracture of the nasal bone and nasal septum with the leftward deviated nasal septum and soft tissue densities in the nasal cavities and nasopharynx having internal air-locules are again seen signifying possible hematoma. 4. Interval resolution of right frontal subgaleal hematoma with a few air locules developing requiring clinical correlation. Electronically Signed by: Krzysztof Chavez MD. (12/21/2023 17:16:52 EDT)
--- NOTE | 2023-12-21 17:20 | XRAY ---
CLINICAL HISTORY: pain COMPARISON: 11/22/2023 TECHNIQUE: Axial CT head WO contrast. SAG and COR reformat images were obtained. "One of the following dose reduction techniques were utilized for this exam: Automated exposure control, adjustment of the mA and/or kV according to patient size, and use of iterative reconstruction." FINDINGS: Comminuted fracture of nasal bone and nasal septum (since the previous scan). There is right inferior frontal acute subarachnoid hemorrhage (new). The rest of brain looks free. No hydrocephalus. No midline shifts or deformity. Unremarkable CT appearance of the posterior fossa structures. The osseous structures in the skull base are unremarkable. No definite calvarium fracture. Normal orbits with intact orbital bones. The previously noted right frontal scalp swelling/hematoma has resolved. IMPRESSION: Newly developed right frontal acute subarachnoid hemorrhage. Comminuted nasal bone fracture. [facility] ER was called at [phone] Ext#[phone] at 5:14 PM EST, 12/21/2023 and results were verbally communicated to Nurse Roxana. Electronically Signed by: Krzysztof Chavez MD. (12/21/2023 17:15:36 EDT)
[2023-12-21 17:38] LABS: Hematocrit 33.2 % (34.1-44.9); Hemoglobin 11.2 g/dL (11.2-15.7); Mean Cell Volume 87.8 fL (79.4-94.8); Mean Corpuscular Hemoglobin 29.6 pg (25.6-32.2); Mean Corpuscular Hgb Concent. 33.7 g/dL (32.2-35.5); Mean Platelet Volume 9.8 fL (9.4-12.3); Platelet Count 276 x10^3/uL (182-369); Red Blood Count 3.78 x10^6/uL (3.93-5.22); Red Cell Distribution Width 13.4 % (11.7-14.4); White Blood Count 7.6 x10^3/uL (3.98-10.04)
--- NOTE | 2023-12-21 17:46 | XRAY ---
CLINICAL HISTORY: pain COMPARISON: NONE TECHNIQUE: X-ray of right forearm showing AP and lateral views FINDINGS: Normal alignment of the bones of right forearm. No definite bony injury is identified. No bony deformity seen. Severe osteoarthritic changes seen in the first carpometacarpal [CMC] joint as evidenced by narrowing of joint space showing subchondral sclerosis and marginal osteophytes. Degenerative changes also seen in the scapho- trapezio-trapezoid joint showing narrowing of joint space with subchondral sclerosis and other intercarpal and carpometacarpal joints. Mild degenerative changes noted involving right elbow joint. Bone density is reduced. Soft tissue swelling noted around the wrist joint IMPRESSION: No definite acute bony injury is identified. Severe Degenerative Osteoarthritic changes seen in the first carpometacarpal [CMC] joint, scapho- trapezio-trapezoid joints. Other intercarpal and carpometacarpal joints also showed degenerative changes. DISCLAIMER:A subtle bone abnormality or fracture may not be readily apparent on x-rays, thus clinical correlation and further imaging including follow-up CT, MRI, or follow-up x-rays are advised as needed. Electronically Signed by: Krzysztof Chavez MD. (12/21/2023 17:42:36 EDT)
--- NOTE | 2023-12-21 17:48 | XRAY ---
CLINICAL HISTORY: FALL,PAIN COMPARISON: CR dated 11/22/2023 was reviewed TECHNIQUE: X-ray of right knee showing AP and lateral views FINDINGS: Status post total right knee replacement in good position and alignment with no signs of loosening or infection. No periprosthetic fracture is identified. Bone density is reduced. No sclerotic or lytic bony lesions. Suggestion of mild suprapatellar joint effusion. Soft tissue swelling seen in the prepatellar and infrapatellar region. IMPRESSION: Status post total right knee replacement in good position and alignment with no signs of loosening infection. No periprosthetic fracture is identified. Suggestion of mild suprapatellar joint effusion. Soft tissue swelling seen in the prepatellar and infrapatellar region. No interval changes when compared with prior study. DISCLAIMER:A subtle bone abnormality or fracture may not be readily apparent on x-rays, thus clinical correlation and further imaging including follow-up CT, MRI, or follow-up x-rays are advised as needed. Electronically Signed by: Krzysztof Chavez MD. (12/21/2023 17:43:10 EDT)
[2023-12-21 17:49] LABS: ALBUMIN 3.5 g/dL (3.5-5.0); ANION GAP 8.4 MEQ/L (5-15); BILIRUBIN,TOTAL 0.7 mg/dL (0.2-1.3); Calcium 9.4 mg/dL (8.4-10.2); Creatinine 1 0.64 mg/dL (0.52-1.04); EST GLOMERULAR FILTRATION RATE 88.7 ML/MIN; Potassium 3.9 mmol/L (3.5-5.1); Total Protein 6.7 g/dL (6.3-8.2)
[2023-12-21 17:52] LABS: INR 0.99 (0.8-3.0); PROTIME 10.8 SECONDS (9.4-12.5); PTT 27.3 SECONDS (25.1-36.5)
--- NOTE | 2023-12-21 18:24 | XRAY ---
CLINICAL HISTORY: pain COMPARISON: None. TECHNIQUE: X-ray of the right wrist was performed in 3 views: AP, oblique, and lateral views. FINDINGS: Diffuse osteopenic bones. Extensive degenerative changes are noted in the first carpometacarpal and intercarpal joints. Some radioulnar cartilage calcifications are also seen. A deformed head of the first metacarpal is noted with extensive osteoarthritis. No definite acute osseous abnormality is seen. Mild soft tissue edema is noted around the wrist. IMPRESSION: 1. No definite acute osseous abnormality is identified. 2. Extensive osteoarthritic changes are seen in the first carpometacarpal, intercarpal, and metacarpophalangeal joints with surrounding soft tissue edema. 3. Generalized osteopenia. 4. Further DEXA scans be done if clinically needed. DISCLAIMER:A subtle bone abnormality or fracture may not be readily apparent on x-rays, thus clinical correlation and further imaging including follow up CT, MRI, or follow up x-rays are advised as needed. Electronically Signed by: Krzysztof Chavez MD. (12/21/2023 18:19:33 EDT)
[2023-12-21] MEDS ORDERED: ENALAPRILAT 2.5 MG INJECTION IV ONE (18:31)
--- NOTE | 2023-12-21 19:08 | XRAY ---
CLINICAL HISTORY: pain, fall COMPARISON: X-ray dated 11/22/2023 TECHNIQUE: X-ray of pelvis was performed in 1 view: AP view. X-ray of the left hip was performed in 2 views: AP and lateral views. FINDINGS: There are osteoarthritic changes of the left hip joint, appearing with severe joint space narrowing, with irregularity and sclerosis of the articular surfaces with osteophyte formation. Moderate changes were noted at the right hip. A few well-corticated calcific foci are seen just inferior to the ischial tuberosity raising the possibility of calcific tendinitis. Linear tiny hyperdensity inferior to the ischial tuberosity, requiring clinical correlation to rule out the foreign body. A radiological examination of the hip demonstrates no lytic lesion. There is a suspicious sclerotic line in the subcapital left hip and a possible cortical disruption of the lateral superior femoral neck. There are no intra-articular or periarticular left hip calcifications IMPRESSION: 1. Suspicious left femoral neck fracture. Recommend correlation with CT left hip. 2. Moderate right and moderate to severe left hip osteoarthritic changes seems stable. 3. A linear hyperdensity inferior to ischial tuberosity requires clinical correlation to rule out the possibility of a foreign body. 4. A few well-corticated calcific foci are seen just inferior to the left ischial tuberosity raising the possibility of calcific tendinitis. DISCLAIMER:A subtle bone abnormality or fracture may not be readily apparent on x-rays, thus clinical correlation and further imaging including follow up CT, MRI, or follow up x-rays are advised as needed.[facility] ER was called at [phone] at 5:53 PM PIPE AND TANK FABRICATOR, 12/21/2023 and medical findings were informed to Dr Krishnamurthy. Electronically Signed by: Krzysztof Chavez MD. (12/21/2023 19:04:10 EDT)
[2023-12-21 19:11] VITALS: BP 197/85; PULSE 62
[2023-12-22 00:01] VITALS: O2SAT 99
== END 2023-12-21 19:03 | disposition short-term general hospital (02) ==
LOC: ED 15:14
DX: S06.6X0A Traumatic subarachnoid hemorrhage without loss of consciousness, initial encounter (principal); S02.2XXA Fracture of nasal bones, initial encounter for closed fracture; W18.30XA Fall on same level, unspecified, initial encounter; I11.0 Hypertensive heart disease with heart failure; I50.9 Heart failure, unspecified; R04.0 Epistaxis; M25.532 Pain in left wrist; M25.552 Pain in left hip; E11.9 Type 2 diabetes mellitus without complications; Z79.84 Long term (current) use of oral hypoglycemic drugs; Z79.899 Other long term (current) drug therapy
CPT/HCPCS: 36000; 36415; 70450; 70486; 73090; 73110; 73502; 73560; 80053; 85027; 85610; 85730; 96374; 99285; L3908; A9270-GY

== ENCOUNTER 2024-09-26 04:06 | Emergency (ER) | payer MEDICARE, BC ==
[2024-09-26 04:18] VITALS: PULSE 50; RESP 18; TEMP 97.1; O2SAT 99
[2024-09-26] MEDS ORDERED: BACIGUENT PACKET ONE (05:10)
[2024-09-26] MEDS: BACIGUENT PACKET TP ONE (05:11)
[2024-09-26 05:14] VITALS: BP 150/63
--- NOTE | 2024-09-26 05:14 | ERPHSYRPT ---
- History of Present Illness Time Seen by Provider: 09/26/24 04:29 Source: patient, family Exam Limitations: no limitations Patient Subjective Stated Complaint: rolled out of bed and landed on a wooden platform that she has so that she can climb up into bed Triage Nursing Assessment: Pt brought back to ER room 6, spouse at bedside. Pt c/o rt shoulder/upper arm pain after rolling out of bed in her sleep and landing on a wooden platform. Pt has limited rom to rt arm. Rt radial pulse present. No deformity, no swelling and no bruising noted. Pt has a skin tear to distal end of rt pinky finger, 1.0cm L x 1.0cm W. Physician History: 84 years old female with a history of hypertension, hyperlipidemia, diabetes mellitus accidentally rolled off of her bed onto a wooden platform to get into the bed in her sleep hitting her right shoulder. Has superficial abrasion to the right hand as well. Did not hit her head, no loss of consciousness. Denies any chest pain abdominal pain, hip pain, knee pain, nausea or vomiting. Up-to-date with tetanus. Patient reports moderate intensity sharp pain with movements of the right shoulder and better with being still. No numbness or tingling in the hand/fingers. No injury anywhere else. Allergies/Adverse Reactions: nateglinide [From Starlix] Adverse Reaction (Verified 09/26/24 04:33) Home Medications: Aspirin [Blanca Chewable] 81 mg PO DAILY 07/07/15 [History] Cyanocobalamin 1000 Mcg/ml [Cyanocobalamin B-12 1000 MCG/ML] 1,000 mcg IJ UD 07/07/15 [History] Levothyroxine Sodium [Synthroid] 125 mcg PO DAILY 07/07/15 [History] Losartan Potassium 50 mg [Cozaar 50 MG] 50 mg PO DAILY 07/07/15 [History] Simvastatin 40 mg [Zocor 40 mg] 40 mg PO HS 07/07/15 [History] Cholecalciferol (Vitamin D3) [Vitamin D] 1.25 mg PO WEEKLY 10/28/22 [History] Fish Oil/Dha/Epa [Fish Oil 1,200 mg Fish Oil] 1,200 mg PO DAILY 10/28/22 [History] Ondansetron [Ondansetron Odt ] 1 tab PO Q8H PRN PRN 10/28/22 [History] Potassium Chloride [Klor-Con 10] 10 meq PO DAILY 10/28/22 [History] Sitagliptin Phos/Metformin HCl [Janumet Xr 100-1,000 mg Tablet] 50 - 1,000 mg PO DAILY 10/28/22 [History] Hx Tetanus, Diphtheria Vaccination/Date Given: Yes Hx Influenza Vaccination/Date Given: Yes Hx Pneumococcal Vaccination/Date Given: Yes Travel Risk - International Travel Have you traveled outside of the country in past 3 weeks: No - Emerging Infectious Disease Are you exhibiting symptoms associated with any current EIDs: No - Review of Systems Constitutional: No Symptoms Eyes: No Symptoms Ears, Nose, & Throat: No Symptoms Respiratory: No Symptoms Cardiac: No Symptoms Abdominal/Gastrointestinal: No Symptoms Musculoskeletal: Fall, Injury, Joint Pain, Joint Swelling Skin: Skin Lesions Neurological: No Symptoms Psychological: No Symptoms Hematologic/Lymphatic: No Symptoms - Past Medical History Pertinent Past Medical History: Yes Neurological History: No Pertinent History ENT History: Cataracts Cardiac History: Congestive Heart Failure, Hypertension Respiratory History: Pneumonia Endocrine Medical History: Diabetes Type II, Hypothyroidism Musculoskeletal History: Osteoarthritis GI Medical History: GERD, Gallbladder Disease, Other History: Other Psycho-Social History: No Pertinent History Female Reproductive Disorders: No Pertinent History Other Medical History: decreased kidney function, low sodium, Freezer Person: jeanette Sharpe - Past Surgical History Past Surgical History: Yes Neuro Surgical History: No Pertinent History Cardiac: CABG Respiratory: Chest Surgery Gastrointestinal: Appendectomy, Cholecystectomy Genitourinary: No Pertinent History Musculoskeletal: No Pertinent History Female Surgical History: Lumpectomy, Tubal Ligation Other Surgical History: lumpectomy right breast was benign, sinus surgery, lumpectomy at neck/shoulder area - Social History Smoking Status: Never smoker Exposure to second hand smoke: No Drug Use: none - Social Determinants of Health Will the patient participate in the screening: Yes Do you worry about a steady place to live?: No Do you have any problems with any of the following?: No known problems In the past 12 months,have you had to go without utilities?: No Transportation Issues: No Has anyone in your support network made you feel unsafe?: No Have you or anyone in your house had to go w/o enough food: No - Nursing Vital Signs Nursing Vital Signs: Initial Vital Signs Temperature 97.1 F 09/26/24 04:16 Pulse Rate 50 L 09/26/24 04:16 Respiratory Rate 18 09/26/24 04:16 Blood Pressure 161/65 09/26/24 04:16 O2 Sat by Pulse Oximetry 99 09/26/24 04:16 Pain Scale Pain Intensity 7 - Physical Exam General Appearance: no apparent distress, alert Eyes, Ears, Nose, Throat Exam: normal ENT inspection Neck Exam: normal inspection, non-tender, supple, full range of motion Cardiovascular/Respiratory Exam: chest non-tender, normal breath sounds, bradycardia Abdominal Exam: non-tender, soft Back Exam: normal inspection, normal range of motion Shoulder Exam: bone tenderness, limited ROM (Right shoulder, intact distal neurovascular), pain Elbow/Forearm Exam: normal inspection, non-tender, no evidence of injury, normal ROM Wrist Exam: normal inspection, non-tender, no evidence of injury, normal ROM Hand Exam: abrasions (Right hand fifth metacarpal phalangeal joint area abrasion/bruise motion. No tenderness) Neuro/Tendon Exam: normal sensation, normal motor functions, normal tendon functions Mental Status Exam: alert, oriented x 3, cooperative Skin Exam: normal color SpO2 Interpretation: normal SpO2: 99 O2 Delivery: Room Air Ordered Tests: Active Orders 24 hr Category Date Time Status HUMERUS Stat Exams 09/26/24 04:36 Taken SHOULDER Stat Exams 09/26/24 05:01 Taken Medication Summary Discontinued Medications Generic Name Dose Route Start Last Admin Trade Name Freq PRN Reason Stop Dose Admin Bacitracin Zinc 0.9 each 09/26/24 05:09 09/26/24 05:11 Bacitracin Packet 1 Each Pckt TP 09/26/24 05:10 0.9 each STAT ONE Administration Bacitracin Zinc Confirm 09/26/24 05:10 Bacitracin Packet 1 Each Pckt Administered 09/26/24 05:11 Dose 1 each .ROUTE .STK-MED ONE - Progress Progress: improved Progress Note: 09/26/24 05:11 84-year-old is evaluated in the ER for right shoulder pain after she accidentally rolled off of her bed while asleep on the reported platform prior to arrival. She has tenderness in right shoulder with some limited range of motion. Intact distal neurovascular. X-rays right shoulder and humerus showed fracture surgical neck with no dislocation. Placed in a sling with outpatient orthopedics follow-up. Patient has mild abrasion right hand, do not think needs imaging. Did not hit her head, notes cervical spine tenderness, no chest wall tenderness, do not think needs any imaging or any other workup as it seems to be mechanical fall. Offered pain medication which she does not wanted, she does have pain medication at home which she is advised to continue. Discussed signs symptoms of worsening return to ER which she seemed understanding. Stable for discharge. Counseled pt/family regarding: diagnosis, need for follow-up, rad results Medical Desision Making - Independent Historian Additional History obtained from: Spouse - Diagnostic Testing Diagnostic test were ordered, analyzed, and reviewed by me: Yes Radiological Interpretation: Interpreted by me, Reviewed by me - Departure Departure Disposition: Home Clinical Impression: Shoulder fracture, right, Fall Condition: Stable Critical Care Time: No Referrals: [facility] [Primary Care Provider] - Follow up/PCP as directed ADAN ZHU DO [ACTIVE STAFF] - Follow up/PCP as directed (Today for reevaluation) Instructions: Shoulder Fracture (DC) Additional Instructions: Intermittent ice application. Avoid exertional activities. Take pain medications which you have at home along with Tylenol as needed. Follow-up with orthopedics surgery for reevaluation in the morning. Return to ER for worsening pain numbness tingling in the hand/forearm.
--- NOTE | 2024-09-26 09:27 | XRAY ---
Indication: Pain following fall. Comparison: None 3 view right shoulder demonstrates nondisplaced impacted humeral neck fracture. Elsewhere osteopenia, advanced glenohumeral/moderate acromioclavicular degenerative arthropathy, minimal/mild multilevel cervical thoracic degenerative spondylosis, left carotid calcifications, and CABG surgery.
--- NOTE | 2024-09-26 09:27 | XRAY ---
Indication: Pain following fall. Comparison: None 2 view right humerus demonstrates nondisplaced impacted humeral neck fracture. Elsewhere osteopenia, advanced glenohumeral/moderate acromioclavicular degenerative arthropathy, mild multilevel thoracolumbar degenerative spondylosis, mild aortic calcifications, and CABG/cholecystectomy.
== END 2024-09-26 05:27 | disposition home or self-care (01) ==
LOC: ED 04:06
DX: S42.211A Unspecified displaced fracture of surgical neck of right humerus, initial encounter for closed fracture (principal); W06.XXXA Fall from bed, initial encounter; Y93.84 Activity, sleeping; Y92.003 Bedroom of unspecified non-institutional (private) residence as the place of occurrence of the external cause; I11.0 Hypertensive heart disease with heart failure; I50.9 Heart failure, unspecified; E11.9 Type 2 diabetes mellitus without complications; Z79.84 Long term (current) use of oral hypoglycemic drugs; Z79.899 Other long term (current) drug therapy
CPT/HCPCS: 73030; 73060; 99283; A9270-GY